=== PATIENT | female | born 1960 | race Caucasian/White ===

== ENCOUNTER 2017-07-22 14:00 | Emergency (ER) | payer MEDICARE, OTHER, SELFPAY ==
[2017-07-22 14:01] VITALS: BP 155/94; PULSE 124; RESP 32; TEMP 36.7; O2SAT 97; BMI 22.6
--- NOTE | 2017-07-22 15:23 | CT_ITS ---
STUDY: CT BRAIN WITHOUT CONTRAST REASON FOR EXAM: Female, 57 years old. Acute seizures. RADIATION DOSAGE (If Supplied By Facility): CTDIvol = ( 44.99 ) mGy, DLP = ( 779.24 ) mGycm TECHNIQUE: Transaxial CT imaging of the brain was performed without administration of intravenous contrast material. Individualized dose optimization techniques were used for this CT. COMPARISON: None. FINDINGS: Normal soft tissue structures. Normal calvarium. Normal size ventricles and extra-axial spaces for the patient's age. Normal white matter tracts of the cerebral hemispheres. Normal basal ganglia and thalami. Normal brainstem. Normal cerebellum. There is no intracranial hemorrhage. There are no findings of an acute ischemic infarction. Atherosclerotic calcification of the cavernous portions of the internal carotid arteries bilaterally. Normal visualized paranasal sinuses. CT/Brain/Head without Contrast IMPRESSION: Normal unenhanced CT scan of the brain. Electronically Signed: Phil Torres MD at 15:56 EDT Tel [phone], Service support ,
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
[2017-07-22 15:31] VITALS: BP 123/90; PULSE 111; RESP 21; O2SAT 98
[2017-07-22 15:33] LABS: Absolute Lymphocyte Count 4.13 X10^3/ul (0.83-4.51); Absolute Neutrophil Count 7.2 X10^3/uL (2.0-7.7); Basophil# 0.01 X10^3/uL; Basophil% 0.1 % (0-1); Eosinophil# 0.08 X10^3/uL; Eosinophils% 0.6 % (0-5); Hematocrit 47.1 % (37-47); Hemoglobin 15.3 g/dl (12.0-15.0); Lymphocyte # 4.13 X10^3/ul (4.0); Lymphocyte % 33.5 % (19-41); Mean Corp Hgb Conc 32.5 g/gl (32-36); Mean Corpuscular Hgb 32.3 pg (27.0-32.0); Mean Corpuscular Volume 99.6 fL (81-99); Mean Platelet Vol. 9.7 fl (6.2-12.0); Monocyte# 0.78 X10^3/uL; Monocyte% 6.3 % (0-10); Neutrophil # 7.23 X10^3/uL (2.7-7.7); Neutrophil % 58.9 % (47-70); Platelet Count 429 K/mm3 (150-450); RBC Distribution Width CV 13.1 % (11.6-14.6); RBC Distribution Width SD 47.6 fl (35.1-43.9); Red Blood Count 4.73 M/mm3 (4.2-5.4); White Blood Count 12.3 K/mm3 (4.4-11.0)
[2017-07-22 15:35] LABS: POSITIVE COUNT NO; POSITIVE DIFFERENTIAL NO; POSITIVE MORPHOLOGY NO
[2017-07-22 15:58] LABS: Anion Gap 27 (5-15); BUN 10 mg/dL (7-18); BUN/Creat Ratio 7.8 RATIO (10-20); Calcium,Total 9.2 mg/dL (8.5-10.1); Chloride 101 mmol/L (98-107); Creatinine, Serum 1.28 mg/dL (0.55-1.02); EST Glomerular Filtration Rate 46 mL/min (>60); Est Glom Filt Rate - Afr Amer 55 mL/min (>60); Estimated Creatinine Clearance 42.38 ml/min; Glucose 193 mg/dL (74-106); Potassium 3.4 mmol/L (3.5-5.1); Sodium Level 137 mmol/L (136-145)
[2017-07-22 16:29] VITALS: BP 145/87; PULSE 98; RESP 18
--- NOTE | 2017-07-22 16:34 | ED.DEP ---
ED Disposition - Plan for ED Patient: Disposition: Home or Assisted Living Chief Complaint: Seizure Instructions: ED Seizure Recurrent Referrals: Marcus Rasmussen MD [STAFF PHYSICIAN] - As soon as possible Additional Instructions: Call follow-up with a neurologist for further evaluation testing. Return to ER if you have another seizure.
[2017-07-22 16:44] VITALS: BP 132/95; PULSE 95; RESP 18
== END 2017-07-22 16:57 | disposition home or self-care (01) ==
PROVIDERS: Emergency Provider Emergency Medicine
DX: R56.9 Unspecified convulsions (principal); J44.9 Chronic obstructive pulmonary disease, unspecified; Z72.0 Tobacco use
CPT/HCPCS: 70450; 80048; 85025; 99284; J7030; A4216

== ENCOUNTER 2021-09-19 01:43 | Emergency (ER) | payer OTHER, SELFPAY ==
[2021-09-19 01:47] VITALS: BP 154/93; PULSE 98; RESP 21; TEMP 36.6; O2SAT 100; BMI 22.0
--- NOTE | 2021-09-19 01:55 | CT_ITS ---
EXAM: CT brain without contrast HISTORY: seizure TECHNIQUE: No intravenous contrast. A radiation dose optimization technique was used for this scan. COMPARISON: July 22, 2017. LIMITATIONS: None. BRAIN: Normal beverly/white matter differentiation. VENTRICLES: No hydrocephalus. EXTRA-AXIAL SPACES: No acute hemorrhage. CALVARIUM/SKULL BASE: No acute fracture. FACE/SINUSES: Calcification of the posterior ocular globes bilaterally, stable since the prior exam. SOFT TISSUES: Normal. OTHER: None. CONCLUSION: No acute intracranial abnormality. Electronically Signed: Duy Grissom MD at 3:21 EDT , CT/Brain/Head without Contrast IMPRESSION: undefined
--- NOTE | 2021-09-19 01:57 | EDS_ITS ---
HPI History of Present Illness Chief Complaint: Seizure Informant: patient Narrative Narrative: Patient evidently had a seizure at home. She rolled off the couch and was shaking. I do not know how long this lasted. Patient tells me she has had seizures for some years. They will sometimes be a long time apart and sometimes she will get one every 3 months or so. She has not been on medications for these. She states they are generally pretty rare. She cannot associate any specific event that triggers these. She has not been sick recently. Denies any change in medicines. No edre-kug-[id number] medicines. She does take Tylenol with codeine for pains. She takes Flexeril on occasion. But she has not had any Flexeril for a while. No street drugs. She is not complaining of any pains or injury at this time. [facility] Medical History Seizure Home Medications cyclobenzaprine [Flexeril] 10 mg PO TID PRN 09/19/21 [History Last Taken Unknown] Allergy/AdvReac Type Severity Reaction Status Date / Time No Known Allergies Allergy Verified 07/22/17 14:04 Social History Smoking Status: Current every day smoker tobacco type: cigarettes ROS ROS ED Constitutional Constitutional ED: Denies chills or fever(s) Eyes Eyes: Denies blurry vision ENT ENT ED: Denies rhinorrhea or sore throat Cardiovascular Cardiovascular: Denies chest pain or palpitations Respiratory/Chest Respiratory/Chest: Denies cough or dyspnea Gastrointestinal Gastrointestinal: Denies nausea or vomiting Genitourinary Genitourinary ED: Denies dysuria Musculoskeletal Musculoskeletal: Denies arthralgias, back pain, myalgias or neck pain Integumentary Denies rash Neurologic Neurologic: Denies headache(s), paresthesias or weakness Endocrine Endocrinology: Denies polydipsia or polyuria Allergic/Immunologic Allergic/Immunologic ED: Denies urticaria EXAM Physical Exam Const Vital Signs: 09/19/21 01:47 Temperature 97.9 F Temperature Source Temporal Pulse Rate 98 Respiratory Rate 21 H Blood Pressure 154/93 H Blood Pressure Mean 113 Pulse Ox 100 Oxygen Delivery Method Room Air Positive well nourished and well developed General Appearance ED: well developed and NAD HEENT Reports moist mucous membranes HEENT Narrative: No notable tongue laceration. Eyes General Eye ED: Negative for pale conjunctiva or scleral icterus Neck no JVD Chest Wall inspection of chest normal Resp normal respiratory effort and clear to auscultation bilaterally Cardio regular rate and regular rhythm GI normal to inspection, nondistended, normoactive bowel sounds and non-tender Palpation: soft Back/Spine no CVA tenderness Extremity normal to inspection General Extremety ED: Negative for edema or tenderness General Extremity: Negative for edema Neuro Neuro Narrative: Patient is oriented to person place but she has a little trouble with the year. She is oriented to [employer] also. She knows her medications and her past history. Sensorium / Orientation: alert Psych mental status grossly normal Skin no rashes or lesions noted Skin Narrative: No sign of trauma MDM MDM MDM Narrative Medical decision making narrative: And CBC is normal. Electrolytes are normal other than mild elevation in creatinine at 1.24. She was given some IV fluids. Ethanol is negative. Tox screen is positive for cannabis, MDMA, and methamphetamines. Patient denies taking anything. She has not even had Flexeril in a while. She has not had trazodone which can cross-react with MDMA. She denies street drug use. I told her to be very careful about what people give her. It is possible somebody gave her medication. However the screens are usually relatively accurate that there is a compound in her system. Both the MDMA and amphetamines could contribute to seizures. Patient states she has seizures anywhere from 2 to 3 months apart up to a year or so apart. [facility]. I recommend she follow-up. She should have a discussed kim with her [facility]rologist about considering being on medicines versus no medicines due to her infrequent seizures. Lab Data Attestation: I reviewed the patient's lab results. Labs: Laboratory Results - last 24 hr 09/19/21 09/19/21 09/19/21 02:05 02:05 02:05 WBC 10.8 RBC 4.65 Hgb 14.0 Hct 41.9 MCV 90.1 MCH 30.1 MCHC 33.4 RDW Std Deviation 41.5 RDW Coeff of Jose 12.6 Plt Count 356 MPV 8.5 Immature Gran % (Auto) 0.300 Neut % (Auto) 77.7 H Lymph % (Auto) 15.4 L Reeves % (Auto) 6.1 Eos % (Auto) 0.3 Baso % (Auto) 0.2 Absolute Neuts (auto) 8.4 H Absolute Lymphs (auto) 1.67 Nucleated RBC % 0 Sodium 136 Potassium 3.5 Chloride 104 Carbon Dioxide 21.0 Anion Gap 11 BUN 13 Creatinine 1.24 H Estim Creat Clear Calc 41.66 Est GFR (MDRD) Af Amer 57 L Est GFR (MDRD) Non-Af 47 L BUN/Creatinine Ratio 10.5 Glucose 132 H Calcium 9.1 Urine Opiates Screen Urine Methadone Screen Ur Barbiturates Screen Ur Phencyclidine Scrn Ur Amphetamines Screen MDMA (Ecstasy) Screen U Benzodiazepines Scrn Urine Cocaine Screen U Cannabinoids Screen Ur Drug Screen Comment Ethyl Alcohol < 3.0 09/19/21 02:53 WBC RBC Hgb Hct MCV MCH MCHC RDW Std Deviation RDW Coeff of Jose Plt Count MPV Immature Gran % (Auto) Neut % (Auto) Lymph % (Auto) Reeves % (Auto) Eos % (Auto) Baso % (Auto) Absolute Neuts (auto) Absolute Lymphs (auto) Nucleated RBC % Sodium Potassium Chloride Carbon Dioxide Anion Gap BUN Creatinine Estim Creat Clear Calc Est GFR (MDRD) Af Amer Est GFR (MDRD) Non-Af BUN/Creatinine Ratio Glucose Calcium Urine Opiates Screen NEGATIVE Urine Methadone Screen NEGATIVE Ur Barbiturates Screen NEGATIVE Ur Phencyclidine Scrn NEGATIVE Ur Amphetamines Screen POSITIVE H MDMA (Ecstasy) Screen POSITIVE H U Benzodiazepines Scrn NEGATIVE Urine Cocaine Screen NEGATIVE U Cannabinoids Screen POSITIVE H Ur Drug Screen Comment Ethyl Alcohol Radiography Diagnostic Testing: Clinical Impression(s) from Imaging Studies Brain CT 09/19/21 01:55 IMPRESSION: undefined Discharge Plan Triage Chief Complaint: Seizure ED Provider: Honorio Reeder Dx/Rx/DC Orders Clinical Impression: Seizure Instructions: ED Seizure, Recurrent (Adult) Prescriptions: No Action cyclobenzaprine [Flexeril] 10 mg Tablet 10 mg PO TID PRN (Reason: Muscle Spasm) RF: 0 Primary Care Provider: Care Physician,No Primary Referrals: Leilani Lin MD [STAFF PHYSICIAN] - As soon as possible Care Physician,No Primary [Primary Care Provider] - Activity Restrictions/Additional Instructions: Follow-up with Dr. Lin or called the [facility] for follow-up. Disposition Disposition: Home, Self Care
[2021-09-19 02:10] LABS: Absolute Lymphocyte Count 1.67 X10^3/uL (0.83-4.51); Absolute Neutrophil Count 8.4 X10^3/uL (2.0-7.7); Basophil# 0.02 X10^3/uL; Basophil% 0.2 % (0-1); Eosinophil# 0.03 X10^3/uL; Eosinophils% 0.3 % (0-5); Hematocrit 41.9 % (37-47); Lymphocyte # 1.67 X10^3/ul (0.83-4.51); Lymphocyte % 15.4 % (19-41); Mean Corp Hgb Conc 33.4 g/dL (32-36); Mean Corpuscular Hgb 30.1 pg (27.0-32.0); Mean Corpuscular Volume 90.1 fL (81-99); Mean Platelet Vol. 8.5 fl (6.2-12.0); Monocyte# 0.66 X10^3/uL; Monocyte% 6.1 % (0-10); NRBC Flagged by Analyzer 0 % (0-5); Neutrophil # 8.41 X10^3/uL (2.7-7.7); Neutrophil % 77.7 % (47-70); Platelet Count 356 K/mm3 (150-450); RBC Distribution Width CV 12.6 % (11.6-14.6); RBC Distribution Width SD 41.5 fl (35.1-43.9); Red Blood Count 4.65 M/mm3 (4.2-5.4); White Blood Count 10.8 K/mm3 (4.4-11.0)
[2021-09-19 02:30] LABS: Anion Gap 11 (5-15); BUN 13 mg/dL (7-18); BUN/Creat Ratio 10.5 RATIO (10-20); Calcium,Total 9.1 mg/dL (8.5-10.1); Chloride 104 mmol/L (98-107); Creatinine, Serum 1.24 mg/dL (0.55-1.02); EST Glomerular Filtration Rate 47 mL/min (>60); Est Glom Filt Rate - Afr Amer 57 mL/min (>60); Estimated Creatinine Clearance 41.66 ml/min; Glucose 132 mg/dL (74-106); Potassium 3.5 mmol/L (3.5-5.1); Sodium Level 136 mmol/L (136-145)
[2021-09-19 02:34] LABS: Alcohol, Blood (Medical)-Serum < 3.0 mg/dL
[2021-09-19 03:23] LABS: Amphetamine Urine VISTA POSITIVE (<1000 ng/mL); Barbiturate Urine VISTA NEGATIVE (< 200 ng/mL); Benzodiazepine Urine VISTA NEGATIVE (< 200 ng/mL); Cocaine Urine VISTA NEGATIVE (< 300 ng/mL); Ecstacy Urine VISTA POSITIVE (< 500 ng/mL); Methadone Urine VISTA NEGATIVE (< 300 ng/mL); PCP Urine VISTA NEGATIVE (< 25 ng/mL); THC Urine VISTA POSITIVE (< 50 ng/mL); Vista UDS pH Range 4
[2021-09-19] MEDS: Acetaminophen 325 MG Tablet 650 MG PO (03:27)
[2021-09-19 04:13] VITALS: BP 156/88; PULSE 69; RESP 18; O2SAT 99
== END 2021-09-19 05:16 | disposition home or self-care (01) ==
PROVIDERS: Emergency Provider Emergency Medicine; Visit Provider Emergency Medicine
DX: R56.9 Unspecified convulsions (principal); F17.210 Nicotine dependence, cigarettes, uncomplicated
CPT/HCPCS: 70450; 80048; 80307; 82077; 85025; 99285; J7040; A4216

== ENCOUNTER 2021-09-19 13:23 | Emergency (ER) | payer OTHER, SELFPAY ==
[2021-09-19 13:24] VITALS: BP 152/94; PULSE 89; RESP 16; TEMP 35.5; O2SAT 100; BMI 21.5
--- NOTE | 2021-09-19 14:21 | EX.ED.DYSGE1 ---
HPI History of Present Illness Chief Complaint: Seizure Narrative Narrative: 61-year-old female presenting with chief complaint of I think I had a seizure. She states that she was on the couch watching television when this occurred. She cannot remember the last thing that happened before this. She states she did not follow-up the couch and did not have any trauma. She states that she was at home with her friend who states that she was shaking. Patient unable to give a description of what exactly happened. She states she woke up to EMS standing over her. She does state that when she opened her eyes she recalls seeing EMS. She feels completely normal now. She states she had a headache which is resolved. She denies pain elsewhere. Denies blurry vision, nausea, vomiting. She denies neck pain. Patient states that this is her third seizure in her entire life. She was recently seen about 12 hours ago for similar symptoms. She was found to have methamphetamine, MDMA, cannabinoids in her system. She states earlier she does not admit to this but she is currently admitting that she did do some methamphetamine she believes. She states she did not do any more after she went home. [facility] Medical History Seizure Home Medications NK 09/19/21 [History Last Taken Unknown] Allergy/AdvReac Type Severity Reaction Status Date / Time No Known Allergies Allergy Verified 09/19/21 13:26 Social History Smoking Status: Current every day smoker tobacco type: cigarettes ROS ROS ED Constitutional Constitutional ED: Denies chills or fever(s) Eyes Eyes: Denies blurry vision ENT ENT ED: Denies rhinorrhea or sore throat Cardiovascular Cardiovascular: Denies chest pain or palpitations Respiratory/Chest Respiratory/Chest: Denies cough or dyspnea Gastrointestinal Gastrointestinal: Denies abdominal pain, nausea or vomiting Genitourinary Genitourinary ED: Denies dysuria or hematuria Musculoskeletal Musculoskeletal: Denies arthralgias, myalgias or neck pain Integumentary Denies rash Neurologic Neurologic: Reports headache(s); Denies paresthesias or weakness Psychiatric Psychiatric: Denies anxiety or depression EXAM Physical Exam Const Vital Signs: 09/19/21 13:24 Temperature 96 F L Temperature Source Temporal Pulse Rate 89 Respiratory Rate 16 Blood Pressure 152/94 H Blood Pressure Mean 113 Pulse Ox 100 Oxygen Delivery Method Room Air Positive well nourished General Appearance ED: NAD; Negative for pallor HEENT Reports moist mucous membranes normocephalic and atraumatic Eyes PERRL and EOMs intact bilaterally Neck no lymphadenopathy and supple General: Negative for tenderness Chest Wall inspection of chest normal Resp normal respiratory effort and clear to auscultation bilaterally Cardio regular rate and regular rhythm GI normal to inspection, nondistended, normoactive bowel sounds Neuro oriented x3, CN's II-XII intact bilaterally and no sensory deficits noted Sensorium / Orientation: alert Motor Exam: strength 5/5 throughout Psych mental status grossly normal Skin no rashes or lesions noted General Skin Exam: Negative for jaundice or pallor MDM MDM MDM Narrative Medical decision making narrative: Patient states that currently she is at her baseline. She states that she believes she had another seizure. She does not wish to have any further evaluation or work-up because she just had one earlier today. She does admit currently that she did do methamphetamine earlier today before coming the first visit but states that she did not have any afterwards. I did have a discussion with her that doing those drugs that were in her system could lower her seizure threshold and that this could be a source. I did offer blood work and imaging but she declines and states that I feel fine and just wants to leave. I believe she has the capacity to make this decision. Impression: 1. Breakthrough seizure 2. MDMA abuse 3. Methamphetamine abuse 4. Cannabinoid abuse Discharge Plan Triage Chief Complaint: Seizure ED Provider: Nilo Patel Dx/Rx/DC Orders Instructions: ED Seizure, Recurrent (Adult) Prescriptions: No Action NK RF: 0 [facility] Referrals: Care Physician,No Primary [NON-STAFF] - Disposition Disposition: Home, Self Care
[2021-09-19 14:36] VITALS: BP 146/98; PULSE 81; RESP 18
== END 2021-09-19 14:36 | disposition home or self-care (01) ==
LOC: ED 14:20
PROVIDERS: Emergency Provider Student in an Organized Health Care Education/Training Program; Visit Provider Student in an Organized Health Care Education/Training Program
DX: R56.9 Unspecified convulsions (principal); F15.10 Other stimulant abuse, uncomplicated; F17.210 Nicotine dependence, cigarettes, uncomplicated; F12.10 Cannabis abuse, uncomplicated
CPT/HCPCS: 99284

== ENCOUNTER 2024-03-28 12:24 | Emergency (ER) | payer OTHER, SELFPAY ==
[2024-03-28 12:24] VITALS: BP 142/107; PULSE 100; RESP 19; TEMP 36.4; O2SAT 97; BMI 19.2
[2024-03-28 12:29] VITALS: TEMP 36.4; O2SAT 95
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
--- NOTE | 2024-03-28 12:45 | EKG12_ITS ---
Test Reason : GENERAL Blood Pressure : */* mmHG Vent. Rate : 97 BPM Atrial Rate : 97 BPM P-R Int : 142 ms QRS Dur : 90 ms QT Int : 402 ms P-R-T Axes : 82 48 56 degrees QTcB Int : 510 ms Sinus rhythm with occasional Premature ventricular complexes Septal infarct , age undetermined Prolonged QT Abnormal ECG Confirmed by JOSE R VÁSQUEZ, TERESA ([id number]), publications editor FLORES SMITH ([id number]) on 03/30/2024 7:04:52 AM Referred By: Confirmed By: TERESA ODELL MD
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
[2024-03-28 13:15] LABS: Absolute Neutrophil Count 8.8 X10^3/uL (2.0-7.7); Basophil# 0.02 X10^3/uL; Basophil% 0.2 % (0-1); Eosinophil# 0.08 X10^3/uL; Eosinophils% 0.7 % (0-5); Hematocrit 42.4 % (37-47); Hemoglobin 13.6 g/dL (12.0-15.0); Lymphocyte % 20.2 % (19-41); Mean Corp Hgb Conc 32.1 g/dL (32-36); Mean Corpuscular Hgb 29.9 pg (27.0-32.0); Mean Corpuscular Volume 93.2 fL (81-99); Mean Platelet Vol. 9.3 fl (6.2-12.0); Monocyte# 0.59 X10^3/uL; NRBC Flagged by Analyzer 0 % (0-5); Neutrophil # 8.75 X10^3/uL (2.7-7.7); Neutrophil % 73.4 % (47-70); Platelet Count 412 K/mm3 (150-450); Red Blood Count 4.55 M/mm3 (4.2-5.4); White Blood Count 11.9 K/mm3 (4.4-11.0)
[2024-03-28] MEDS: 0.9% Normal Saline (1000mL) 1,000 ML 999 ML IV (13:18)
[2024-03-28 13:20] LABS: Prothrombin Time (Protime)PT. 13.1 SECONDS (11.7-14.9)
[2024-03-28 13:21] LABS: Partial Thromboplast Time 26.7 Seconds (24.1-36.2)
[2024-03-28 13:29] LABS: AST(SGOT) 14 U/L (15-37); Alanine Aminotransfer ALT/SGPT 14 U/L (13-56); Albumin, Serum 3.5 g/dL (3.2-5.0); Alkaline Phosphatase 98 U/L (45-117); Anion Gap 11 (5-15); BUN 15 mg/dL (7-18); BUN/Creat Ratio 14.4 RATIO (10-20); Bilirubin, Direct 0.08 mg/dL (0.00-0.30); Chloride 105 mmol/L (98-107); Creatinine, Serum 1.04 mg/dL (0.55-1.02); EST Glomerular Filtration Rate 57 mL/min (>60); Est Glom Filt Rate - Afr Amer 69 mL/min (>60); Estimated Creatinine Clearance 44.98 ml/min; Globulin 4.5 g/dL (2.2-4.2); Glucose 110 mg/dL (74-106); Potassium 3.5 mmol/L (3.5-5.1); Sodium Level 137 mmol/L (136-145)
[2024-03-28 14:18] LABS: Color, Urine Straw (Yellow); Glucose, Dipstick Normal (Normal); Ketone-Dipstick Negative (Negative); Leukocyte Esterase-Dipstick Negative /ul (Negative); Nitrite-Dipstick Negative (Negative); Occult Blood-Urine 50 /ul (Negative); Protein-Dipstick 30 mg/dl (Negative); Specific Gravity, Urine 1.015 (1.002-1.030); Urine Bilirubin Dipstick Negative (Negative); Urine Clarity Clear (Clear); Urine Urobilinogen Normal (Normal)
--- NOTE | 2024-03-28 14:23 | EDS_ITS ---
HPI History of Present Illness Chief Complaint: Fall Narrative Narrative: Patient is a 63-year-old female with past medical history of seizures who presents to the emergency department with a chief complaint of seizure. Patient states that she does not recall what happened earlier today. According to EMS she was found facedown in a parking lot and was found by bystander. Per EMS she was confused as to what happened during the event. Patient states that she was on Depakote but she has been off of this for several years that she has not had a seizure. Patient states that she had been feeling fine yesterday and earlier today prior to the seizure. Patient denies any other pain right now. [facility] Medical History Epilepsy Seizure Home Medications ?Medication ?Instructions ?Recorded ?Last Taken ?Type NK 09/19/21 Unknown History Allergy/AdvReac Type Severity Reaction Status Date / Time No Known Allergies Allergy Verified 03/28/24 12:28 Social History Smoking Status: Current every day smoker tobacco type: cigarettes ROS ROS ED ROS Narrative Constitutional: Denies any fevers, chills, headaches, lightness, dizziness Eyes: Denies change in vision double vision blurry vision Cardiovascular: Denies chest pain or palpitations Respiratory: Denies coughing wheezing shortness of breath Abdomen: Denies abdominal pain nausea vomit diarrhea : Denies any urinary symptoms Neurological: Denies any numbness, weakness, tingling complaint of seizures noted above Musculoskeletal: Denies back pain Skin: Denies any rashes or lesions EXAM Physical Exam Narrative Exam Narrative: General: Patient lying in bed rest comfortably did not appear to be in acute distress Head: Atraumatic, normocephalic Eyes: PERRL body, EOMI biotic no conjunctival injection noted Neck: Soft, supple, trachea midline Cardiovascular: Regular rate and rhythm no murmurs gallops rubs noted Respiratory: Clear to auscultation bilaterally no rales rhonchi or wheezes noted Abdomen: Soft, nondistended, nontender to palpation, bowel sounds present x 4 Musculoskeletal: All bony prominences palpated and joints taken through full range of motion no pain elicited Extremities: +5/5 strength noted in the bilateral upper and lower extremities, radial pulses +2/4 in the bilateral per extremities, no pedal edema neuroexam Neurological: Patient following commands knew that she was at [facility] year is 2023. NIH of 0 GCS 15 Skin: Warm, dry, intact Const Vital Signs: 03/28/24 12:24 03/28/24 12:29 03/28/24 14:24 Temperature 97.6 F L 97.6 F L Temperature Source Oral Pulse Rate 100 Respiratory Rate 19 H Respiratory Effort Normal Non-Labored Respiratory Pattern Tachypnea Blood Pressure 142/107 H 165/65 H Blood Pressure Mean 118 98 Pulse Ox 97 95 Oxygen Delivery Method Room Air Room Air MDM MDM MDM Narrative Medical decision making narrative: Patient is a 63-year-old female who presented to the emergency department after a seizure earlier. Patient will have a workup performed here on the differential diagnose includes Melamin to intracranial hemorrhage, electrolyte abnormality, substance abuse, UTI, ACS. Once workup is obtained reviewed she will be reevaluated. Patient's CBC reviewed and showed a white blood count of 11,000, hemoglobin was 13.6, platelet count was noted be 412. Patient's INR normal at 1, PT of 13.1. Patient sodium normal 137, potassium is normal 3.5, creatinine was 1.04. Patient's AST and ALT are 14 and 14 respectively. Patient's urinalysis showed 50 occult blood 5-10 white cells and 2+ bacteria she did not have any urinary symptoms therefore this was sent for culture. Patient drug screen was positive for amphetamines and ecstasy. Patient's CT head and brain without contrast showed no acute findings. Patient CT cervical spine reviewed and showed multilevel degenerative and postsurgical changes no acute findings noted. Patient's EKG was reviewed and independently interpreted by myself which showed sinus rhythm with a rate of 97 bpm with occasional premature ventricular complexes noted. It is unclear as to the exact etiology of her fall and unresponsive episode on the ground today as this was unwitnessed. Patient did elope prior to all her imaging returning and discussion with her about her results. Lab Data Labs: Laboratory Results - last 24 hr 03/28/24 03/28/24 13:01 14:02 WBC 11.9 H RBC 4.55 Hgb 13.6 Hct 42.4 MCV 93.2 MCH 29.9 MCHC 32.1 RDW Std Deviation 48.0 H RDW Coeff of Jose 14.0 Plt Count 412 MPV 9.3 Immature Gran % (Auto) 0.500 Neut % (Auto) 73.4 H Lymph % (Auto) 20.2 Mitchell % (Auto) 5.0 Eos % (Auto) 0.7 Baso % (Auto) 0.2 Absolute Neuts (auto) 8.8 H Absolute Lymphs (auto) 2.40 Nucleated RBC % 0 PT 13.1 INR 1.0 APTT 26.7 Sodium 137 Potassium 3.5 Chloride 105 Carbon Dioxide 22.0 Anion Gap 11 BUN 15 Creatinine 1.04 H Estim Creat Clear Calc 44.98 Est GFR (MDRD) Af Amer 69 Est GFR (MDRD) Non-Af 57 L BUN/Creatinine Ratio 14.4 Glucose 110 H Calcium 10.0 Total Bilirubin 0.30 Direct Bilirubin 0.08 AST 14 L ALT 14 Alkaline Phosphatase 98 Total Protein 8.0 Albumin 3.5 Globulin 4.5 H Urine Color Straw Urine Clarity Clear Urine pH 6.0 Ur Specific [place] 1.015 Urine Protein 30 H Urine Glucose (UA) Normal Urine Ketones Negative Urine Occult Blood 50 H Urine Nitrite Negative Urine Bilirubin Negative Urine Urobilinogen Normal Ur Leukocyte Esterase Negative Urine RBC 0-5 SEEN Urine WBC 5-10 SEEN Ur Squamous Epith Cells 0-5 SEEN Amorphous Sediment 2+ Urine Bacteria 2+ Urine Mucus 1+ Urine Opiates Screen NEGATIVE Urine Methadone Screen NEGATIVE Ur Barbiturates Screen NEGATIVE Ur Phencyclidine Scrn NEGATIVE Ur Amphetamines Screen POSITIVE H MDMA (Ecstasy) Screen POSITIVE H U Benzodiazepines Scrn NEGATIVE Urine Cocaine Screen NEGATIVE U Cannabinoids Screen NEGATIVE Ur Drug Screen Comment Radiography Diagnostic Testing: Clinical Impression(s) from Imaging Studies Brain CT 03/28/24 12:45 IMPRESSION: Normal unenhanced CT scan of the brain. Electronically Signed: Anderson Villasenor MD at 14:44 EST , Cervical Spine CT 03/28/24 12:45 IMPRESSION: Multilevel degenerative and postsurgical changes, no acute findings Electronically Signed: Anderson Villasenor MD at 14:50 EST , Discharge Plan Triage Chief Complaint: Fall ED Provider: Aureliano Aragon Dx/Rx/DC Orders Clinical Impression: Fall Prescriptions: No Action NK [facility] [facility] [Primary Care Provider] - Print Language: Yoruba Disposition Disposition: Elopement Discharge Date/Time: 03/28/24 15:18
[2024-03-28 14:24] VITALS: BP 165/65
[2024-03-28 14:24] LABS: Amphetamine Urine VISTA POSITIVE (<1000 ng/mL); Barbiturate Urine VISTA NEGATIVE (< 200 ng/mL); Benzodiazepine Urine VISTA NEGATIVE (< 200 ng/mL); Cocaine Urine VISTA NEGATIVE (< 300 ng/mL); Ecstacy Urine VISTA POSITIVE (< 500 ng/mL); Methadone Urine VISTA NEGATIVE (< 300 ng/mL); PCP Urine VISTA NEGATIVE (< 25 ng/mL); THC Urine VISTA NEGATIVE (< 50 ng/mL); Vista UDS pH Range 5
[2024-03-28 14:33] LABS: Amorphous Sediment 2+; Bacteria 2+ /hpf (None Seen); Mucous, Urine 1+ /hpf (<or=2+); Red Blood Cells-Urine 0-5 SEEN /hpf (0-5); Squamous Epithelial Cells - UA 0-5 SEEN /hpf (5-10); White Blood Cells 5-10 SEEN /hpf (0-5)
--- NOTE | 2024-03-28 15:17 | ED.RN ---
THIS NURSE WAS INFORMED BY SHOEMAKER APPRENTICE THAT PT WALKED OUT OF ROOM AND LEFT THE BUILDING. IV LAYING ON BED, GOWN REMOVED.
== END 2024-03-28 15:18 | disposition left against medical advice (07) ==
LOC: ED 13:02
PROVIDERS: Emergency Provider Emergency Medicine; Visit Provider Emergency Medicine
DX: R41.0 Disorientation, unspecified (principal); I49.3 Ventricular premature depolarization; F17.210 Nicotine dependence, cigarettes, uncomplicated; W19.XXXA Unspecified fall, initial encounter
CPT/HCPCS: 70450; 72125; 80048; 80076; 80307; 81001; 85025; 85610; 85730; 87086; 93005; 96360; 99285

== ENCOUNTER 2024-10-29 06:50 | Inpatient (IN) | payer OTHER, SELFPAY ==
[2024-10-29] VITALS (20 sets, daily range): BP systolic 141–215; BP diastolic 81–125; PULSE 75–91; RESP 10–19; TEMP 37–37.4; O2SAT 97–100; BMI 16.5; BMI 19.5
--- NOTE | 2024-10-29 07:09 | EKG12_ITS ---
Test Reason : CP Blood Pressure : */* mmHG Vent. Rate : 86 BPM Atrial Rate : 86 BPM P-R Int : 138 ms QRS Dur : 82 ms QT Int : 378 ms P-R-T Axes : 84 50 49 degrees QTcB Int : 452 ms Normal sinus rhythm Right atrial enlargement Borderline ECG Confirmed by JOSE R VÁSQUEZ, TERESA ([id number]), pictures editor SISSY BOUCHER ([id number]) on 11/02/2024 9:38:36 AM Referred By: Confirmed By: TERESA ODELL MD
--- NOTE | 2024-10-29 07:09 | CT_ITS ---
PROCEDURE: ABDOMEN/PELVIS W IV CONT ONLY 10/29/2024 REASON FOR EXAM: ABDOMINAL PAIN TECHNIQUE: ABDOMEN/PELVIS W IV CONT ONLY Coronal and Sagittal reconstruction series were provided. CONTRAST: Isovue 370 VOLUME: 100 mL One or more dose reduction techniques were used (e.g., Automated exposure control, adjustment of the mA and/or kV according to patient size, use of iterative reconstruction technique. RADIATION DOSE SUMMARY: DLP: 300 mGycm COMPARISON: None. FINDINGS: Lung bases: Visualization is limited by motion artifact. Bibasilar atelectasis. Liver: The liver is normal in size without suspicious hepatic mass. The major portal veins are patent. No biliary ductal dilation. Gallbladder: No radiopaque stones within the gallbladder. Spleen: Normal in size. Pancreas: Mildly atrophic and otherwise unremarkable. Adrenals: No adrenal mass. Kidneys: Bilateral renal cysts and additional hypodensities. No hydronephrosis or nephrolithiasis. Bladder: Mildly distended and unremarkable. Reproductive Organs: Surgically absent. Bowel: The bowel loops are nondilated. No ascites or pneumoperitoneum. No inflammatory mass in the expected region of the appendix. Lymph nodes: No suspicious lymph node enlargement. Vasculature: Moderate mixed plaque of the aortoiliac vessels. Bones: Thoracolumbar spondylosis CT/Abdomen/Pelvis W IV Cont ONLY IMPRESSION: No acute abdominopelvic finding. Chronic findings as described. Reading Location: [id number]
--- NOTE | 2024-10-29 07:14 | EX.ED.DYSGE1 ---
HPI History of Present Illness Chief Complaint: Nausea/Vomiting Informant: patient Narrative Narrative: Patient is a 64-year-old female with history of epilepsy presenting with epigastric abdominal pain, vomiting and diarrhea. She has been going on for 3 weeks. History is extremely limited as patient will only tell me these facts. When asked if the pain radiates, how many times a day she is having vomiting and diarrhea and if it is every day she has a hard time answering his questions and will just say what you mean and then tell me again that she has abdominal pain. At the end of my encounter she does tell me that she thinks she has a GI bug. She arrived without shoes and states that she was dropped off by someone but cannot tell us who. She tells me she did not have any trauma to her abdomen. It is unclear if she is ever had this consolation of symptoms before however I do not have a prior ER visit for this. She tells me she does have medications prescribed but when asked what they are or what they treat she does not recall. When asked if she drinks alcohol she tells me a bit. She cannot specify further for quantity, what type of alcohol or how frequent. [facility] Medical History Epilepsy Seizure Home Medications ?Medication ?Instructions ?Recorded ?Last Taken ?Type NK 09/19/21 Unknown History Allergy/AdvReac Type Severity Reaction Status Date / Time No Known Allergies Allergy Verified 10/29/24 06:50 Social History Smoking Status: Current every day smoker tobacco type: cigarettes ROS ROS ED Review of Systems ROS Unobtainable: due to mental status Gastrointestinal Gastrointestinal: Reports abdominal pain, diarrhea and vomiting EXAM Physical Exam Const Vital Signs: 10/29/24 06:50 10/29/24 08:55 10/29/24 10:00 Temperature 98.6 F Temperature Source Oral Pulse Rate 91 85 83 Respiratory Rate 18 11 L 12 Blood Pressure 212/112 H 199/100 H 197/112 H Blood Pressure Mean 145 133 140 Pulse Ox 99 99 98 Oxygen Delivery Method Room Air Room Air 10/29/24 10:39 10/29/24 10:45 10/29/24 11:00 Temperature Temperature Source Pulse Rate 75 Respiratory Rate 10 L Blood Pressure 170/87 H 188/110 H Blood Pressure Mean 112 134 Pulse Ox 100 100 97 Oxygen Delivery Method 10/29/24 11:30 10/29/24 12:00 10/29/24 12:15 Temperature Temperature Source Pulse Rate 82 77 Respiratory Rate 13 Blood Pressure 205/125 H 215/105 H 199/110 H Blood Pressure Mean 146 138 137 Pulse Ox 98 99 100 Oxygen Delivery Method 10/29/24 12:30 10/29/24 12:45 10/29/24 13:00 Temperature Temperature Source Pulse Rate Respiratory Rate Blood Pressure 192/121 H 206/114 H 204/118 H Blood Pressure Mean 141 139 140 Pulse Ox 97 99 98 Oxygen Delivery Method 10/29/24 13:15 Temperature Temperature Source Pulse Rate Respiratory Rate Blood Pressure 182/105 H Blood Pressure Mean 125 Pulse Ox 97 Oxygen Delivery Method Positive well nourished and well developed General Appearance ED: well developed and NAD; Negative for pallor HEENT Reports moist mucous membranes HEENT Narrative: Repetitive movements of the tongue most consistent with long-term medication effect Negative for trauma Eyes PERRL and EOMs intact bilaterally Neck supple Neck Narrative: No meningeal signs Chest Wall inspection of chest normal Resp normal respiratory effort and clear to auscultation bilaterally Cardio regular rate, regular rhythm and no murmurs Cardio Narrative: 2+ radial DP pulses GI non-distended GI Narrative: No's abdominal surgical scars appreciated Inspection: Negative for abdominal distention Auscultation: normoactive bowel sounds Palpation: soft and tender epigastric; Negative for guarding Back/Spine no CVA tenderness Extremity normal to inspection General Extremety ED: Negative for edema General Extremity: Negative for edema Neuro Neuro Narrative: Oriented to self and situation. Sensorium / Orientation: alert and orientation impaired Motor Exam: Negative for general weakness Psych Appearance: grossly normal Attitude: withdrawn Activity / Motor Behavior: psychomotor agitation Speech: minimal and delayed Thought Process: impoverished Thought Content: No suicidality and No homicidality Attention / Concentration: attention grossly intact and concentration grossly impaired Memory / Cognition: memory grossly impaired and cognition impaired Insight: limited Skin no rashes or lesions noted and no wounds General Skin Exam: Negative for jaundice or pallor MDM MDM MDM Narrative Medical decision making narrative: Patient evaluated for 3 weeks of reported vomiting, diarrhea and epigastric pain. She is an exceedingly poor historian. I attempted to call her mother who is listed as her emergency contact however no one answered. Did leave a voicemail. From prior chart reviews patient is only been seen for seizures and has reported methamphetamine abuse in the past. Vital signs significant for hypertension but is downtrending while in the emergency room. Will continue to monitor. Do not appreciate possible abdominal mass, lower suspicion for ruptured AAA/aortic dissection. She is equal pulses in all 4 extremities. Patient is given IV morphine, Zofran and fluids. Will obtain workup including cardiac and abdominal labs and CT of the abdomen and pelvis. Patient continues to have pain. She is redosed with morphine and then Dilaudid. Blood pressure is elevated she is initially given IV labetalol with no significant improvement. Blood pressure is not improving with pain control and is been given IV hydralazine. On my review of the CT she does have an enlarged gallbladder is tender in her right upper quadrant. In addition her alkaline phosphatase is higher than it has been in the past. CT itself was read as no acute process. Right upper quadrant ultrasound is obtained given her chronic pain. This shows cholelithiasis with sonographic Garcia sign and a mildly thickened gallbladder wall however there is no dilation of common bile duct, pericholecystic fluid and is read as equivocal. Due to her leukocytosis and continued pain I do think she would benefit from surgical evaluation. Patient started on IV Zosyn in the emergency room. Due to her mental status I do not think she is safe to go home at this time and think she require admission from that standpoint as well. Social work consult was obtained. I suspect this is more metabolic. She does not have meningeal signs. While in the ER towards the end of her evaluation she is starting to complain of neck pain. She points to the spinous process of C7. She states she has had pain there for 10 years and it always hurts. She denies any acute pain. She still has good range of motion of her neck. Consider CT imaging of the brain. She is on any focal neurologic deficits. She is alert and her mentation is slightly improved on the emergency room. No signs of head trauma. Patient evaluated by general surgery who will order HIDA scan and reevaluate tomorrow for potential cholecystectomy. Patient admitted to medicine service. Blood pressure finally does improve with IV hydralazine. She is given IV fluids in the emergency room as well. Lab Data Attestation: I reviewed the patient's lab results. Labs: Laboratory Results - last 24 hr 07/24/25 07/24/25 07/24/25 06:55 07:20 08:00 WBC 13.8 H RBC 5.42 H Hgb 16.6 H Hct 48.0 H MCV 88.6 MCH 30.6 MCHC 34.6 RDW Std Deviation 40.4 RDW Coeff of Jose 12.4 Plt Count 410 MPV 10.2 Immature Gran % (Auto) 0.500 Neut % (Auto) 74.0 H Lymph % (Auto) 20.1 Anderson % (Auto) 4.8 Eos % (Auto) 0.2 Baso % (Auto) 0.4 Absolute Neuts (auto) 10.2 H Absolute Lymphs (auto) 2.78 Nucleated RBC % 0 Sodium 130 L Potassium 3.9 Chloride 90 L Carbon Dioxide 25.3 Anion Gap 15 BUN 47 H Creatinine 1.28 H Estim Creat Clear Calc 31.03 L Est GFR (MDRD) Non-Af 47 L BUN/Creatinine Ratio 36.4 H Glucose 139 H Lactic Acid 1.4 Calcium 10.2 Total Bilirubin 0.36 AST 21 ALT 11 Alkaline Phosphatase 118 H Total Creatine Kinase 38 Troponin T High Sens 13 Troponin T Hi Sens 2 Hr Troponin T Hi Sens 4Hr Total Protein 8.2 Albumin 4.6 Globulin 3.6 Albumin/Globulin Ratio 1.3 Lipase 24 Urine Color Urine Clarity Urine pH Ur Specific [place] Urine Protein Urine Glucose (UA) Urine Ketones Urine Occult Blood Urine Nitrite Urine Bilirubin Urine Urobilinogen Ur Leukocyte Esterase Urine RBC Urine WBC Ur Squamous Epith Cells Urine Bacteria Urine Mucus Urine Opiates Screen U Buprenorphine Qual Ur Oxycodone Screen Urine Methadone Screen Urine Fentanyl Screen Ur Barbiturates Screen Ur Phencyclidine Scrn Ur Amphetamines Screen U Benzodiazepines Scrn Urine Cocaine Screen U Cannabinoids Screen Ethyl Alcohol < 10.1 10/29/24 10/29/24 10/29/24 09:20 09:22 11:25 WBC RBC Hgb Hct MCV MCH MCHC RDW Std Deviation RDW Coeff of Jose Plt Count MPV Immature Gran % (Auto) Neut % (Auto) Lymph % (Auto) Anderson % (Auto) Eos % (Auto) Baso % (Auto) Absolute Neuts (auto) Absolute Lymphs (auto) Nucleated RBC % Sodium Potassium Chloride Carbon Dioxide Anion Gap BUN Creatinine Estim Creat Clear Calc Est GFR (MDRD) Non-Af BUN/Creatinine Ratio Glucose Lactic Acid Calcium Total Bilirubin AST ALT Alkaline Phosphatase Total Creatine Kinase Troponin T High Sens Troponin T Hi Sens 2 Hr 12 Troponin T Hi Sens 4Hr 12 Total Protein Albumin Globulin Albumin/Globulin Ratio Lipase Urine Color Yellow Urine Clarity Clear Urine pH 6.0 Ur Specific [place] 1.010 Urine Protein 30 H Urine Glucose (UA) Normal Urine Ketones Negative Urine Occult Blood 250 H Urine Nitrite Negative Urine Bilirubin Negative Urine Urobilinogen Normal Ur Leukocyte Esterase Negative Urine RBC 5-10 SEEN Urine WBC 0 SEEN Ur Squamous Epith Cells 0-5 SEEN Urine Bacteria 0 SEEN Urine Mucus 0 SEEN Urine Opiates Screen PRESUMPTIVE POSITIVE U Buprenorphine Qual NEGATIVE Ur Oxycodone Screen NEGATIVE Urine Methadone Screen NEGATIVE Urine Fentanyl Screen PRESUMPTIVE POSITIVE Ur Barbiturates Screen NEGATIVE Ur Phencyclidine Scrn NEGATIVE Ur Amphetamines Screen PRESUMPTIVE POSITIVE U Benzodiazepines Scrn NEGATIVE Urine Cocaine Screen NEGATIVE U Cannabinoids Screen PRESUMPTIVE POSITIVE Ethyl Alcohol Radiography Diagnostic Testing: Clinical Impression(s) from Imaging Studies Abdomen/Pelvis CT 10/29/24 07:09 IMPRESSION: No acute abdominopelvic finding. Chronic findings as described. Reading Location: [facility] Gallbladder Ultrasound 10/29/24 09:22 IMPRESSION: Cholelithiasis with equivocal findings of acute cholecystitis. Reading Location: [facility] Rhythm Strip Rhythm Strip: Sinus Rhythm Rate: 86 Ectopy: None EKG Initial EKG: Attestation: I personally reviewed and interpreted this EKG as follows: Interpretation: Sinus Rhythm Comments: Normal sinus rhythm at a rate of 86 bpm Normal axis Normal intervals Right atrial enlargement present Normal ST segments Compared to prior EKG on 03/28/2024 patient has more prominent T waves in V3 through V4 but no other acute changes Management Discussion w/another healthcare provider: Hospitalist, [employer] and asbestos abatement worker/Case management Discharge Plan Dx/Rx/DC Orders Clinical Impression: Abdominal pain, Gallstones, Leukocytosis, CKD (chronic kidney disease), Altered mental status, Polysubstance abuse Disposition Disposition: Acute Care Hospital [facility] Discharge Date/Time: 10/29/24 15:49
[2024-10-29 07:21] LABS: Hematocrit 48.0 % (37-47); Hemoglobin 16.6 g/dL (12.0-15.0); Immature Granulocytes Count 0.070 X10^3/uL (0.0-0.0); Mean Corp Hgb Conc 34.6 g/dL (32-36); Mean Corpuscular Volume 88.6 fL (81-99); Mean Platelet Vol. 10.2 fl (6.2-12.0); NRBC Flagged by Analyzer 0 % (0-5); Platelet Count 410 K/mm3 (150-450); RBC Distribution Width CV 12.4 % (11.6-14.6); RBC Distribution Width SD 40.4 fl (35.1-43.9); Red Blood Count 5.42 M/mm3 (4.2-5.4); White Blood Count 13.8 K/mm3 (4.4-11.0)
[2024-10-29] MEDS: 0.9% Normal Saline (1000mL) 1,000 ML 999 ML IV (07:25)
[2024-10-29 07:42] LABS: Troponin T High Sensitivity 13 ng/L (<=14)
--- OUTSIDE RECORDS SUMMARY | 2024-10-29 07:43 | XMS RPT_ITS | CCD ---
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 (Bld) 0.2 % 0-1 [facility] Work Phone: Chloride [Moles/Vol] 104 mmol/L 98-107 [facility] Work Phone: Eosinophils/100 WBC (Bld) 0.3 % 0-5 [facility] Work Phone: [phone] Glucose [Mass/Vol] 132 mg/dL 74-106 [facility] Work Phone: Comment on above: Fasting Glucose resu lt greater than or equal to 126 mg/dL suggests DIABETES MELLITUS per A.D.A. criteria. Neutrophils (Bld) [#/Vol] 8.4 10*3/uL 2.0-7.7 [facility] Work Phone: Neutrophils/100 WBC (Bld) 77.7 % 47-70 [facility] Work Phone: Potassium [Moles/Vol] 3.5 mmol/L 3.5-5.1 [facility] Work Phone: Sodium [Moles/Vol] 136 mmol/L 136-145 [facility] Work Phone: WBC (Bld) [#/Vol] 10.8 10*3/uL 4.4-11.0 [facility] Work Phone: Blood erythrocytes count (nu mber/volume)on 09-19-2021 RBC (Bld) [#/Vol] 4.65 10*6/uL 4.2-5.4 [facility] Work Phone: Blood hemoglobin measurement (mass/volume)on 09-19-2021 Hemoglobin (Bld) [Mass/Vol] 14.0 g/dL 12.0-15.0 [facility] Work Phone: [phone] Blood lymphocytes/100 leukoc yteson 09-19-2021 Lymphocytes/100 WBC (Bld) 15.4 % 19-41 [facility] Work Phone: Blood monocytes/100 leukocyt eson 09-19-2021 Monocytes/100 WBC (Bld) 6.1 % 0-10 [facility] Work Phone: Blood platelet mean volumeon 09-19-2021 Platelet mean volume (Bld) [Entitic vol] 8.5 fL 6.2-12.0 [facility] Work Phone: Determination of erythrocyte mean corpuscular volume (MCV)on 09-19-2021 MCV (RBC) [Entitic vol] 90.1 fL 81-99 [facility] Work Phone: Hematocrit Auto (Bld) [Volum e fraction]on 09-19-2021 Hematocrit (Bld) [Volume fraction] 41.9 % 37-47 [facility] Work Phone: Laboratory - Chemistry and C hemistry - challengeon 09-19-2021 CO2 [Moles/Vol] 21.0 mmol/L 21.0-32.0 [facility] Work Phone: Urea nitrogen/Creatinine [Mass ratio] 10.5 mg/mg 10-20 [facility] Work Phone: Laboratory - Drug toxicology on 09-19-2021 Amphetamines Ql (U) Positive [facility] Work Phone: Benzodiazepines Ql (U) Negative [facility] Work Phone: Cannabinoids Screen Ql (U) Positive [facility] Work Phone: Cocaine Ql (U) Negative [facility] Work Phone: Opiates Ql (U) Negative [facility] Work Phone: Laboratory - Hematology and Cell countson 09-19-2021 Erythrocyte distribution width (RBC) [Entitic vol] 41.5 fL 35.1-43.9 [facility] Work Phone: Erythrocyte distribution width (RBC) [Ratio] 12.6 % 11.6-14.6 [facility] Work Phone: Immature granulocytes/100 WBC (Bld) 0.300 % 0.0-0.9 [facility] Work Phone: Comment on above: IG% - Immature Granu locytes (promyelocytes, myelocytes and metamyelocytes) > 1% indicates that a LEFT SHIFT is Present. MCH (RBC) [Entitic mass] 30.1 pg 27.0-32.0 [facility] Work Phone: Nucleated RBC/100 WBC (Bld) [Ratio] 0 % 0-5 [facility] Work Phone: MCHC Auto (RBC) [Mass/Vol]on 09-19-2021 MCHC (RBC) [Mass/Vol] 33.4 g/dL 32-36 [facility] Work Phone: No Panel Informationon 09-19 MDMA (Ecstasy) Screen Positive [facility] Work Phone: Urine Barbiturates Screen Negative [facility] Work Phone: Urine Drug Screen Comment [facility] Work Phone: Comment on above: CONFIRMATORY TESTING FOR ALL POSITIVE URINE DRUG SCREENRESULTS WILL ONLY BE SENT OUT UPON PHYSICIAN ORDER. VISTA Urine Drug Screen methods provide only preliminaryanalytical test results. A more specific alternate chemicalmethod must be used in order to obtain a confirmedanalytical result. Gas chromatography/mass spectrometery(GC/MS) is the preferred confirmatory method. Clinicalconsideration and professional judgement should be appliedto any drug of abuse test result, particularly whenpreliminary positive results are used. URINE TCA TESTING MUST BE ORDERED SEPARATELY. USE TESTMNEMONIC: [facility] Urine Methadone Screen Negative [facility] Work Phone: Estimated Creatinine Clearance Calc 41.66 ml/min [facility] Work Phone: Estimated GFR (MDRD) Amer 57 mL/min >60 [facility] Work Phone: Comment on above: GFR Calc Estimated GFR (MDRD) Non-Af Amer 47 mL/min >60 [facility] Work Phone: Comment on above: Non- GFR Calc Ethyl Alcohol Level < 3.0 mg/dL [facility] Work Phone: Comment on above: The serum:whole bloo d ethanol ratio is approximately 1.14and varies slightly with hematocrit. Medical Alcohol reference interval and critical value innon-tolerant individuals; 50 - 100 Impairment 100 Intoxication 100 - 250 Severe Poisoning 250 - 400 Deep/possible fatal coma Platelets bldon 09-19-2021 Platelets (Bld) [#/Vol] 356 10*3/uL 150-450 [facility] Work Phone: Serum or plasma calcium macie urement (mass/volume)on 09-19-2021 Calcium [Mass/Vol] 9.1 mg/dL 8.5-10.1 [facility] Work Phone: Serum or plasma creatinine m easurement (mass/volume)on 09-19-2021 Creatinine [Mass/Vol] 1.24 mg/dL 0.55-1.02 [facility] Work Phone: Comment on above: The validity of the calculated GFR & GFRAA in patients over 70 years has not been determined. Clinical correlation is essential. Serum or plasma urea nitroge n measurement (mass/volume)on 09-19-2021 Urea nitrogen [Mass/Vol] 13 mg/dL 7-18 [facility] Work Phone: Thin prep Papanicolaou smear with manual screeningon 09-19-2021 Thin prep Papanicolaou smear with manual screening 11 5-15 [facility] Work Phone: Urine phencyclidine (PCP) de tectionon 09-19-2021 Phencyclidine Ql (U) Negative [facility] Work Phone: MA MAMMOGRAM DIAGNOSTIC LEFT on 11-19-2017 MA MAMMOGRAM DIAGNOSTIC LEFT ORIGINALFROM:[address] [address]Ehjxh: [phone] PROCEDURE FOR:CHANDU DAVISON[address], [place] [address]Woxl: [phone]#: [id number]#: [id number]#: [id number]: 2Age: 57 TO:OCTAVIA MANLEYTANO [id number] [place], [place] [address] #[id number] LEFT DIAGNOSTIC MAMMOGRAM WITH MEDIOLATERAL MEDIOLATERAL OBLIQUE CRANIOCAUDAL MAGNIFICATION: 11/19/2017Comparison is made to exam dated: 10/25/2017 mammogram - [facility]. The tissue of the left breast is heterogeneously dense. Additional imaging was obtained. Focal area in question in the left breast in prior mammography is not reproduced and presumably represents an artifact. No significant masses, calcifications, or other findings are seen in the breast. IMPRESSION: BENIGNThere is no mammographic evidence of malignancy. Return to annual mammogram screening schedule is recommended. Please see separate ultrasound report for further details regarding the right mammographic finding. LEANDER VAIL MD cm/:11/20/2017 16:53:27 copy to: JIMBO SMYTH MD, MA [facility], ph: [phone], fax: [phone] Victorian Literature Professor: STEVIE VALLE RT (R)(M), [facility] sent: Normal BI-RADS 1&2 Mammogram BI-RADS: 2 Benign Normal [facility] ([place]) US BREAST RIGHT LIMITEDon US BREAST RIGHT LIMITED ORIGINALFROM:[address] [address]Perpy: [phone] PROCEDURE FOR:CHANDU [address]ESMA [address], [place] [address]Ssdl: [phone]#: [id number]#: [id number]#: [id number]: 1960ge: 57 TO:OCTAVIA MANLEYTANO [address] [place], [place] [address] #[id number] ULTRASOUND OF RIGHT BREAST: 11/19/2017CLINICAL: MAMMOGRAPHIC ASSYMETRY RIGHT BREAST. Comparison is made to exam dated: 10/25/2017 mammogram - [facility]. Color flow and real-time ultrasound of the right breast were performed. There is a benign appearing 2.2 cm area in the right breast at 11 o'clock posterior depth. This correlates with mammography findings. IMPRESSION: BENIGN There is no sonographic evidence of malignancy. The 2.2 cm area in the right breast is consistent with fibroglandular tissue and appears benign. Return to annual mammogram screening schedule is recommended. Please see separate mammogram report regarding the left breast calcifications. LEANDER VAIL MD cm/:11/20/2017 16:57:22 copy to: JIMBO SMYTH MD, MA [facility], ph: [phone], fax: [phone] Victorian Literature Professor: PIPPA WESTBROOK RDMS, [facility] sent: Normal BI-RADS 1&2 Ultrasound BI-RADS: 2 Benign Normal [facility] ([place]) PA MAMMOGRAM SCREENING BILAT ERAL W/TOMOon 10-25-2017 PA MAMMOGRAM SCREENING BILATERAL W/EVERARDO ORIGINALFROM:[address] [address]Imnob: [phone] PROCEDURE FOR:CHANDU [address] [address]Nzqi: [phone]#: [id number]#: [id number]#: [id number]: 2Age: 57 TO:OCTAVIA EID [address] [place], [place] [address] #[id number] DIGITAL SCREENING MAMMOGRAM 3D/2D WITH CAD WITH MEDIOLATERAL OBLIQUE CRANIOCAUDAL: 10/25/2017CLINICAL: BASELINE. No prior exams were available for comparison. The tissue of both breasts is heterogeneously dense. Current study was also evaluated with a Computer Aided Detection (CAD) system. There is a 2.2 cm oval asymmetry in the right axillary tail. This is seen in additional views. There is a 1.6 cm area of grouped punctate calcifications in the left breast at 1 o'clock posterior depth. No other significant masses or calcifications are seen in either breast. IMPRESSION: INCOMPLETE: NEEDS ADDITIONAL IMAGING EVALUATIONThe 2.2 cm oval asymmetry in the right axillary tail appears indeterminate. An ultrasound examination is recommended for the mass. We will contact the patient to arrange for the ultrasound exam. The 1.6 cm area of grouped punctate calcifications in the left breast at 1 o'clock posterior depth appear indeterminate. Additional views are needed for the calcifications including magnification compression spot views in the MLO and CC projections and a lateral magnification view. I have personally reviewed the images of the examination and agree with the findings and interpretation. LEANDER Spencer,da/:11/01/2017 18:10:41 Victorian Literature Professor: JAE Robles)(M), [facility] sent: Abnormal-Needs W/U BI-RADS 0 Mammogram BI-RADS: 0 Indeterminate Normal [facility] ([place]) Vital Signs Date Time Vital Sign Value Performing Clinician Moniquei cecilio 09-19-2021 14:36-0400 Diastolic blood pressure 98 mm[Hg] [facility] Work Phone: 09-19-2021 14:36-0400 Heart rate 81 /min [facility] Work Phone: 09-19-2021 14:36-0400 Respiratory rate 18 /min [facility] Work Phone: 09-19-2021 14:36-0400 Systolic blood pressure 146 mm[Hg] [facility] Work Phone: 09-19-2021 13:24-0400 Body height 162.56 cm [facility] Work Phone: 09-19-2021 13:24-0400 Body mass index (BMI) [Ratio] 21.5 kg/m2 [facility] Work Phone: 09-19-2021 13:24-0400 Body temperature 96 [degF] [facility] Work Phone: 09-19-2021 13:24-0400 Body weight 56.9 kg [facility] Work Phone: 09-19-2021 13:24-0400 SaO2% (BldA) [Mass fraction] 100 % [facility] Work Phone: 09-19-2021 04:13-0400 Diastolic blood pressure 88 mm[Hg] [facility] Work Phone: 09-19-2021 04:13-0400 Heart rate 69 /min [facility] Work Phone: 09-19-2021 04:13-0400 Respiratory rate 18 /min [facility] Work Phone: 09-19-2021 04:13-0400 SaO2% (BldA) [Mass fraction] 99 % [facility] Work Phone: 09-19-2021 04:13-0400 Systolic blood pressure 156 mm[Hg] [facility] Work Phone: 09-19-2021 01:47-0400 Body height 162.56 cm [facility] Work Phone: 09-19-2021 01:47-0400 Body mass index (BMI) [Ratio] 22 kg/m2 [facility] Work Phone: 09-19-2021 01:47-0400 Body temperature 97.9 [degF] [facility] Work Phone: 09-19-2021 01:47-0400 Body weight 58.2 kg [facility] Work Phone: Encounters Encounter Date Encounter Type Care Provider Facility Start: 03-28-2024 End: 03-28-2024 Emergency department patient visit [facility] Facility:[facility] Start: 09-19-2021 End: 09-19-2021 Emergency department patient visit [facility] Start: 09-19-2021 End: 09-19-2021 Emergency department patient visit [facility] Start: 11-19-2017 End: 11-20-2017 Patient encounter OCTAVIA EID Facility:B Start: 10-25-2017 End: 10-26-2017 Patient encounter OCTAVIA EID Facility:B Start: 10-18-2017 Patient encounter OCTAVIA EID Facil ity:A Procedures Date Procedure Procedure Detail Performing Clinician Start: 09-19-2021 CT of head without contrast Plan of Treatment Date Care Activity Detail Author Patient Education ED Seizure, Recurrent ( Adult) [facility] Work Phone: Patient referral [facility] Work Phone: Payers Date Payer Category Payer Self-pay [id number] 2024 Unknown [id number] 2016 Unknown [id number] 2016 Unknown [id number] Medicare [place] AUTH REQUIRED SEE NOTE* * [id number] Unknown [id number] Social History Date Type Detail Facility Start: 09-19-2021 End: 09-19-2021 Tobacco smoking status NHIS Unknown if ever smoked [facility] Work Phone: Start: 1960 Sex Assigned At Female [facility] Work Phone: Mental Status Date Assessment Result Facility 09-19-2021 Cognitive function Voice/Name [facility] Work Phone: 09-19-2021 Cognitive function Voice/Name [facility] Work Phone: Evaluation note Note Date & Type Note Facility Evaluation note No assessment information availa ble [facility] Work Phone: Hospital Discharge instructions Note Date & Type Note Facility Hospital Discharge instructions Additional Instructions Follow-up with Dr. Lin or called the [facility] for follow-up. [facility] Work Phone: Summary Purpose Family History No Family History Records FoundNo Family History Records Found Advance Directives No Advanced Directives Records Found Advance Directive Response Recorded Date/ Time Living Will No September 19, 2021 1:49am Power of Psychologist Chief No September 19 2 1:49am Advance Directive Response Recorded Date/ Time Living Will No September 19, 2021 1:27pm Power of Psychologist Chief No September 19 2 1:27pm Chief Complaint and Reason for Visit Chief Complaint seizure Chief Complaint seizure SEIZURE Additional Source Comments INFORMATION SOURCE (unrecogn ized section and content) DATE CREATED AUTHOR 01/18/2018 [facility] ([place]) DATE CREATED AUTHOR AUTHOR'S ORGANIZ ATION 04/30/2024 [facility] Goals (unrecognized section and content) Goals may be documented in a n alternate sectionGoals may be documented in an alternate section FOR RECORDS PERTAINING TO PATIENTS WHO ARE OR HAVE BEEN ENROLLED IN A CHEMICAL DEPENDENCY/SUBSTANCEABUSE PROGRAM, SOME INFORMATION MAY BE OMITTED. This clinical summary was aggregated from multiple sources. Caution should be exercised in using it in the provision of clinical care. This summary normalizes information from multiple sources, and as a consequence, information in this document may materially change the coding, format and clinical context of patient data. In addition, data may be omitted in some cases. CLINICAL DECISIONS SHOULD BE BASED ON THE PRIMARY CLINICAL RECORDS. [facility]. provides no warranty or guarantee of the accuracy or completeness of information in this document.
[2024-10-29 07:45] LABS: AST(SGOT) 21 U/L (<=31); Alanine Aminotransfer ALT/SGPT 11 U/L (<=34); Albumin, Serum 4.6 g/dL (3.4-4.8); Alkaline Phosphatase 118 U/L (35-104); Anion Gap 15 (5-15); BUN 47 mg/dL (4-19); BUN/Creat Ratio 36.4 RATIO (10-20); Calcium,Total 10.2 mg/dL (7.6-11.0); Carbon Dioxide 25.3 mmol/L (21.0-32.0); Chloride 90 mmol/L (98-108); Estimated Creatinine Clearance 31.03 ml/min (50-250); Globulin 3.6 g/dL (2.2-4.2); Glucose 139 mg/dL (70-99); Lipase 24 U/L (13-75); Potassium 3.9 mmol/L (3.3-5.1)
[2024-10-29 09:17] LABS: CPK Total, Creatine Kinase 38 U/L (24-195)
[2024-10-29 09:22] LABS: Alcohol, Blood (Medical)-Serum < 10.1 mg/dL (<=10.0)
--- NOTE | 2024-10-29 09:22 | US_ITS ---
PROCEDURE: GALLBLADDER 10/29/2024 REASON FOR EXAM: PAIN COMPARISON: Same day CT abdomen pelvis FINDINGS: Liver: Normal in size measuring 16.0 cm. The bile ducts are within normal limits. The major portal vein is patent with normal directional flow at midline. Gallbladder: Multiple stones within the dependent gallbladder. Positive Garcia sign reported by medical technologist chief. No gallbladder wall thickening or pericholecystic fluid. Common bile duct: Normal measuring 0.4 cm. Pancreas: Visualized portions are sonographically unremarkable. Other: Visualized portions of the right kidney are unremarkable. No right upper quadrant ascites. US/Gallbladder IMPRESSION: Cholelithiasis with equivocal findings of acute cholecystitis. Reading Location: [id number]
[2024-10-29 09:38] LABS: Mucous, Urine 0 SEEN /hpf (<or=2+)
[2024-10-29 09:39] LABS: Color, Urine Yellow (Yellow); Glucose, Dipstick Normal (Normal); Ketone-Dipstick Negative (Negative); Leukocyte Esterase-Dipstick Negative /ul (Negative); Nitrite-Dipstick Negative (Negative); Occult Blood-Urine 250 /ul (Negative); Protein-Dipstick 30 mg/dl (Negative); Specific Gravity, Urine 1.010 (1.002-1.030); Urine Bilirubin Dipstick Negative (Negative)
[2024-10-29 09:50] LABS: Red Blood Cells-Urine 5-10 SEEN /hpf (0-5); Squamous Epithelial Cells - UA 0-5 SEEN /hpf (5-10)
[2024-10-29 09:55] LABS: Troponin T High Sens 2 HR 12 ng/L (<=14)
[2024-10-29 10:06] LABS: Barbiturate Urine NEGATIVE (< 200 ng/mL); Benzodiazepine Urine NEGATIVE (< 200 ng/mL); PCP Urine NEGATIVE (< 25 ng/mL); THC Urine PRESUMPTIVE POSITIVE (< 50 ng/mL)
--- NOTE | 2024-10-29 11:27 | CM.ED ---
Social work Reason for referral: possible mental health Referral source: Dr. Martinez SW was consulted for potential mental health struggles due to patient's lack of ability to give medical history and be oriented to time, place, and person. SW entered patient's room, introducing self and role at [facility]. Patient welcomed SW visit and stated multiple times throughout conversation that patient's belly was in so much pain and patient really needed a shot of fluids to make it feel better. Patient was observed being agitated, interrupting SW to say the pain was really bad, and stating not being able to handle the morphine provided due to the morphine giving patient a headache. Patient was oriented to place and person, though patient had difficulty with time (not knowing the day of the week or the month). Patient knew patient's address and birthday, as well as patient's mother's name. Patient stated patient's social security number when asked patient's phone number, though this took a substantial amount of time. Patient was unable to state patient's mother's phone number throughout time SW was in room. Dr. Martinez had tried to call patient's emergency contact, Lilia Duvall (patient's mother) and had to leave a VM. SW tried as well and received nobody; per patient, Lilia is 99 years old. Patient stated having friends bring patient to the ED today. Per patient, it was patient's black edson and a really pale white bitch. Despite attempts, patient could not recall the names of these friends. These friends are reportedly who patient lives with as well. Per patient, patient served 9 years in the [employer] and then served in the [employer] for an unknown amount of time. Per patient, patient has Bipolar and DARIANA, but the medication names are unknown. Per patient, patient sips alcohol every day, though patient could not state what alcohol was consumed, the frequency, or the amount. Patient stated having Percocet and Vicodin prescriptions. Patient stated struggling with sleeping and with eating, stating patient was so skinny. Patient denied being suicidal currently or in the lifetime, as well as denied homicidal. Due to patient's toxicology screen testing positive for multiple substances and being unable to provide coherent answers to questions, it is believed that patient would benefit from medical admission prior to asking further mental health assessment questions. Dr. Martinez in agreement. Viki Burch, INDUSTRIAL AUTOMATION SPECIALIST, TICKET PRINTER
[2024-10-29 12:05] LABS: Troponin T High Sens 4 HR 12 ng/L (<=14)
[2024-10-29] MEDS: HYDROmorphone 0.5 MG/0.5 ML SYRINGE IV (12:50)
[2024-10-29] MEDS: 0.9% Normal Saline (1000mL) 1,000 ML 100 ML IV ×2 (12:50→17:15)
[2024-10-29] MEDS: Piperacil/Tazobactam 3.375 GM in 0.9% Normal Saline (50mL MB+) 50 ML IV ×2 (12:50→21:48)
--- NOTE | 2024-10-29 13:15 | NM_ITS ---
PROCEDURE: HEPATOBILLIARY IMAGING 10/29/2024 REASON FOR EXAM: ABDOMINAL PAIN TECHNIQUE: Intravenous Choletec with planar imaging of the abdomen. RADIOPHARMACEUTICAL: 6 mCi Technetium 99m - Mebrofenin COMPARISON: Abdominal ultrasound and CT earlier same day 10/29/2024. FINDINGS: Prompt homogeneous normal uptake of the radiopharmaceutical by the liver. Normal uptake visualized within the gallbladder within 20-30 minutes. There is normal excretion of radiotracer into the proximal small bowel. NM/Hepatobilliary Imaging IMPRESSION: Normal HIDA scan. No evidence for acute cholecystitis. Reading Location: [id number]
--- NOTE | 2024-10-29 13:17 | EX.PCM.CON.S ---
Assessment & Plan Assessment/Plan (1) Abdominal pain: PLAN: The patient is complaining of abdominal pain and reports tenderness throughout the abdomen. There is no focal point she can point to that shows where her pain is. She also says she vomited but does not remember when. She does not remember when she last ate. She says she feels hungry. Given the fact that her pain is diffuse and not centralized to the right upper quadrant I would like to order a HIDA to rule out acute cholecystitis. The patient does have 2 large gallstones but I do not see anything in the neck of the gallbladder and there is minimal if any thickening and on CT scan there was no stranding around it with no pericholecystic fluid. White count is slightly elevated. She was also mildly dehydrated. She is also severely hypertensive. I would like medicine to admit to deal with the hypertensive issues. If the HIDA is positive I will take her for surgery tomorrow. Steven Garcia MD Pager: [facility] [address] [place] [address], [address] [place] [address] Office: HPI Consult Data Date of Consult: 10/29/24 HPI Narrative HPI Narrative: CHANDU DAVISON, is a 64 F who presents with abdominal pain. The patient is a extremely poor historian she cannot tell me how long the abdominal pain has been going on. She also complains of neck pain that is been going on for 10 years. She did not answer many of my questions except for telling me that she hurts. [facility] Medical History Epilepsy Seizure Home Medications ?Medication ?Instructions ?Recorded ?Last Taken ?Type NK 09/19/21 Unknown History Allergy/AdvReac Type Severity Reaction Status Date / Time No Known Allergies Allergy Verified 10/29/24 06:50 Social History Smoking Status: Current every day smoker tobacco type: cigarettes ROS Review of Systems ROS Unobtainable: due to mental status Physical Exam Const alert and no apparent distress Orientation / Consciousness: confused HEENT normocephalic Eyes PERRL Resp normal respiratory effort Cardio Rate: regular rate Rhythm: regular rhythm GI soft to palpation Palpation: tender Lab / Micro Data 10/29/24 06:55 10/29/24 06:55 Labs: Laboratory Results - last 24 hr 10/29/24 06:55: WBC 13.8 H, RBC 5.42 H, Hgb 16.6 H, Hct 48.0 H, MCV 88.6, MCH 30.6, MCHC 34.6, RDW Std Deviation 40.4, RDW Coeff of Jose 12.4, Plt Count 410, MPV 10.2, Immature Gran % (Auto) 0.500, Neut % (Auto) 74.0 H, Lymph % (Auto) 20.1, Smith % (Auto) 4.8, Eos % (Auto) 0.2, Baso % (Auto) 0.4, Absolute Neuts (auto) 10.2 H, Absolute Lymphs (auto) 2.78, Nucleated RBC % 0, Sodium 130 L, Potassium 3.9, Chloride 90 L, Carbon Dioxide 25.3, Anion Gap 15, BUN 47 H, Creatinine 1.28 H, Estim Creat Clear Calc 31.03 L, Est GFR (MDRD) Non-Af 47 L, BUN/Creatinine Ratio 36.4 H, Glucose 139 H, Calcium 10.2, Total Bilirubin 0.36, AST 21, ALT 11, Alkaline Phosphatase 118 H, Total Creatine Kinase 38, Troponin T High Sens 13, Total Protein 8.2, Albumin 4.6, Globulin 3.6, Albumin/Globulin Ratio 1.3, Lipase 24 10/29/24 07:20: Lactic Acid 1.4 10/29/24 08:00: Ethyl Alcohol < 10.1 10/29/24 09:20: Troponin T Hi Sens 2 Hr 12 10/29/24 09:22: Urine Color Yellow, Urine Clarity Clear, Urine pH 6.0, Ur Specific [place] 1.010, Urine Protein 30 H, Urine Glucose (UA) Normal, Urine Ketones Negative, Urine Occult Blood 250 H, Urine Nitrite Negative, Urine Bilirubin Negative, Urine Urobilinogen Normal, Ur Leukocyte Esterase Negative, Urine RBC 5-10 SEEN, Urine WBC 0 SEEN, Ur Squamous Epith Cells 0-5 SEEN, Urine Bacteria 0 SEEN, Urine Mucus 0 SEEN, Urine Opiates Screen PRESUMPTIVE POSITIVE, U Buprenorphine Qual NEGATIVE, Ur Oxycodone Screen NEGATIVE, Urine Methadone Screen NEGATIVE, Urine Fentanyl Screen PRESUMPTIVE POSITIVE, Ur Barbiturates Screen NEGATIVE, Ur Phencyclidine Scrn NEGATIVE, Ur Amphetamines Screen PRESUMPTIVE POSITIVE, U Benzodiazepines Scrn NEGATIVE, Urine Cocaine Screen NEGATIVE, U Cannabinoids Screen PRESUMPTIVE POSITIVE 10/29/24 11:25: Troponin T Hi Sens 4Hr 12 Rhythm Strip Rhythm Strip: Sinus Rhythm Rate: 86 Ectopy: None Imaging Radiology Impression Abdomen/Pelvis CT 10/29/24 07:09 IMPRESSION: No acute abdominopelvic finding. Chronic findings as described. Reading Location: [facility] Gallbladder Ultrasound 10/29/24 09:22 IMPRESSION: Cholelithiasis with equivocal findings of acute cholecystitis. Reading Location: [facility]
--- NOTE | 2024-10-29 13:29 | PCM.HP.STD ---
HPI - General General Date of Admission: 10/29/24 Date of Service: 10/29/24 Chief Complaint: Abdominal pain HPI Narrative CHANDU DAVISON, is a 64-year-old [facility] and has a history of ?sz d/o and possible bipolar disorder presented [facility] ED 10/29/2024 for abdominal pain. Patient is an extremely poor historian and has loose associations and flight of ideas so history obtained per report but even that was somewhat inconsistent. Supposedly patient's been having nausea, vomiting, diarrhea, abdominal pain for at least a couple of weeks and also is complaining of some chronic neck pain. In the ED temp 98.6, heart rate 91 and blood pressure 212/112, respiratory rate 18 and pulse ox 99% on room air. CBC with a white blood cell count of 13.8 and hemoglobin of 16.6. Sodium of 130, BUN of 47 and creatinine 1.28. Alk phos slightly elevated 118. UA not suggestive of infection, CPK 38, troponin 13 with a repeat of 12, lactic acid 1.4 and lipase of 24. CT abdomen pelvis obtained with no acute process. Gallbladder ultrasound with cholelithiasis with equivocal findings of acute cholecystitis. Surgery consulted due to concerns for acute cholecystitis, given patient's inconsistent history and generalized pain difficult to assess symptomatology, HIDA was ordered and hospitalist contacted for admission with surgical consult. Patient evaluated at bedside, did report the abdominal pain, to me denied diarrhea but did endorse nausea and vomiting, patient could not give any further direct history and began to give contradictory answers or answers completely unrelated to the question. 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 Patient able to tell me medical problems or medicines or even where she got her medications filled. [facility] Medical History Epilepsy Seizure Home Medications ?Medication ?Instructions ?Recorded ?Last Taken ?Type NK 09/19/21 Unknown History Allergy/AdvReac Type Severity Reaction Status Date / Time No Known Allergies Allergy Verified 10/29/24 06:50 Social History Smoking Status: Current every day smoker tobacco type: cigarettes ROS ROS Narrative Unable to obtain secondary to patient mental status Vital Signs Vital Signs Vital Signs: 10/29/24 06:50 10/29/24 08:55 10/29/24 10:00 Temperature 98.6 F Temperature Source Oral Pulse Rate 91 85 83 Respiratory Rate 18 11 L 12 Blood Pressure 212/112 H 199/100 H 197/112 H Blood Pressure Mean 145 133 140 Pulse Ox 99 99 98 Oxygen Delivery Method Room Air Room Air 10/29/24 10:39 10/29/24 10:45 10/29/24 11:00 Temperature Temperature Source Pulse Rate 75 Respiratory Rate 10 L Blood Pressure 170/87 H 188/110 H Blood Pressure Mean 112 134 Pulse Ox 100 100 97 Oxygen Delivery Method 10/29/24 11:30 10/29/24 12:00 Temperature Temperature Source Pulse Rate 82 77 Respiratory Rate 13 Blood Pressure 205/125 H 215/105 H Blood Pressure Mean 146 138 Pulse Ox 98 99 Oxygen Delivery Method Weight Weight: 43.7 kg Body Mass Index (BMI) 16.5 Physical Exam Narrative General: Alert, unable to answer orientation questions, very fidgeting and appears upset at times HEENT: Normocephalic Eyes: Anicteric, normal conjunctiva, extraocular movements grossly intact Neck: Supple Respiratory: Clear to auscultation bilaterally, normal respiratory effort Cardiovascular: Regular rate and rhythm GI: Soft, nondistended, patient does not appear in pain on my palpation however when asked verbally reports that it does hurt, does not seem to have any rebound or guarding Extremities: No edema Musculoskeletal: Moving all extremities Neuro: No overt focal neurological deficits Skin: No rashes appreciated Psych: Patient agitated, flight of ideas somewhat disorganized Results Lab / Micro Data 10/29/24 06:55 10/29/24 06:55 Labs: Laboratory Results - last 24 hr 10/29/24 06:55: WBC 13.8 H, RBC 5.42 H, Hgb 16.6 H, Hct 48.0 H, MCV 88.6, MCH 30.6, MCHC 34.6, RDW Std Deviation 40.4, RDW Coeff of Jose 12.4, Plt Count 410, MPV 10.2, Immature Gran % (Auto) 0.500, Neut % (Auto) 74.0 H, Lymph % (Auto) 20.1, [place] % (Auto) 4.8, Eos % (Auto) 0.2, Baso % (Auto) 0.4, Absolute Neuts (auto) 10.2 H, Absolute Lymphs (auto) 2.78, Nucleated RBC % 0, Sodium 130 L, Potassium 3.9, Chloride 90 L, Carbon Dioxide 25.3, Anion Gap 15, BUN 47 H, Creatinine 1.28 H, Estim Creat Clear Calc 31.03 L, Est GFR (MDRD) Non-Af 47 L, BUN/Creatinine Ratio 36.4 H, Glucose 139 H, Calcium 10.2, Total Bilirubin 0.36, AST 21, ALT 11, Alkaline Phosphatase 118 H, Total Creatine Kinase 38, Troponin T High Sens 13, Total Protein 8.2, Albumin 4.6, Globulin 3.6, Albumin/Globulin Ratio 1.3, Lipase 24 10/29/24 07:20: Lactic Acid 1.4 10/29/24 08:00: Ethyl Alcohol < 10.1 10/29/24 09:20: Troponin T Hi Sens 2 Hr 12 10/29/24 09:22: Urine Color Yellow, Urine Clarity Clear, Urine pH 6.0, Ur Specific [place] 1.010, Urine Protein 30 H, Urine Glucose (UA) Normal, Urine Ketones Negative, Urine Occult Blood 250 H, Urine Nitrite Negative, Urine Bilirubin Negative, Urine Urobilinogen Normal, Ur Leukocyte Esterase Negative, Urine RBC 5-10 SEEN, Urine WBC 0 SEEN, Ur Squamous Epith Cells 0-5 SEEN, Urine Bacteria 0 SEEN, Urine Mucus 0 SEEN, Urine Opiates Screen PRESUMPTIVE POSITIVE, U Buprenorphine Qual NEGATIVE, Ur Oxycodone Screen NEGATIVE, Urine Methadone Screen NEGATIVE, Urine Fentanyl Screen PRESUMPTIVE POSITIVE, Ur Barbiturates Screen NEGATIVE, Ur Phencyclidine Scrn NEGATIVE, Ur Amphetamines Screen PRESUMPTIVE POSITIVE, U Benzodiazepines Scrn NEGATIVE, Urine Cocaine Screen NEGATIVE, U Cannabinoids Screen PRESUMPTIVE POSITIVE 10/29/24 11:25: Troponin T Hi Sens 4Hr 12 Rhythm Strip Rhythm Strip: Sinus Rhythm Rate: 86 Ectopy: None Imaging Radiology Impression Abdomen/Pelvis CT 10/29/24 07:09 IMPRESSION: No acute abdominopelvic finding. Chronic findings as described. Reading Location: [id number] Gallbladder Ultrasound 10/29/24 09:22 IMPRESSION: Cholelithiasis with equivocal findings of acute cholecystitis. Reading Location: [facility] Assessment & Plan Assessment/Plan (1) Abdominal pain: PLAN: Plan # Nausea/vomiting/abdominal pain -CT abdomen with no acute process -Gallbladder ultrasound with positive sonographic Garcia sign and gallstones -Concern for possible cholecystitis -Patient placed on Zosyn -Surgery consulted -HIDA scan ordered -N.p.o. at midnight in the event patient needs surgery tomorrow, pending HIDA scan results -IV fluids -Antiemetics/supportive care - Will also start patient on IV PPI in the event there could be upper GI component as at 1 point there was a query of epigastric pain # Hypertensive urgency -Patient without evidence of endorgan damage -In the ED on my evaluation systolic blood pressure 185 but was frequently in the 200s in the ED -Suspect multifactorial and likely in part due to substance use with intoxication and/or component of withdrawal -Likely also worsened by reports of patient's pain -Will treat with as needed, attempt to obtain records from the [facility] to see if patient should be on any medications -If BP remains elevated can consider scheduling medication # Positive UDS -UDS positive for fentanyl, amphetamines, cannabinoids and opiates, patient did get opiates in the ED for her abdominal pain but this would not account for the positive fentanyl amphetamine -Patient reports story and unable to give further substance use history -Was evaluated in the ED by social work but they also were unable to glean pertinent history -Suspect patient's presentation more consistent with substance intoxication then with underlying psychiatric disorder however if symptoms persist may need to consider that this could be psychiatric in nature and not solely substance use -Advise cessation -Supportive care # Hyponatremia - Sodium of 130 but no recent values available - Does appear somewhat dry, will give IV fluids - If no improvement or if further worsening will need to consider further workup #?History of seizure disorder -Patient does not know what medications she takes, will attempt to get records from the [facility] -Will have Ativan as needed for seizure-like activity -Patient's current presentation not consistent with seizure activity and seems more likely to be due to substance intoxication # CKD stage III a -Appears to be at baseline -Avoid nephrotoxic agents -Daily BMPs #DVT ppx: SCDs Kayli Garcia MD Charges/Coding Visit Charges Inpatient E&M: 22369 Init Hosp L2
--- NOTE | 2024-10-29 15:36 | ED.RN ---
Dr. Martinez notified that pt received complete second 1000ml of NS before going up to floor
[2024-10-29] MEDS: Pantoprazole Sodium 40 MG in 0.9% Normal Saline (100mL MB+) 100 ML 330 MG IV (17:01)
--- NOTE | 2024-10-29 17:57 | EKG12_ITS ---
Test Reason : IRREGULAR HR Blood Pressure : */* mmHG Vent. Rate : 86 BPM Atrial Rate : 86 BPM P-R Int : 120 ms QRS Dur : 88 ms QT Int : 514 ms P-R-T Axes : 15 49 32 degrees QTcB Int : 615 ms Critical Test Result: Long QTc Normal sinus rhythm Prolonged QT Abnormal ECG When compared with ECG of 29-Oct-2024 06:55, MANUAL COMPARISON REQUIRED DATA IS UNCONFIRMED Confirmed by JOSE R VÁSQUEZ, TERESA ([id number]), rewrite editor SISSY BOUCHER ([id number]) on 11/02/2024 9:46:47 AM Referred By: Confirmed By: TERESA ODELL MD
[2024-10-29 18:56] LABS: Troponin T High Sensitivity 11 ng/L (<=14)
[2024-10-29 20:35] LABS: Troponin T High Sens 2 HR 12 ng/L (<=14)
[2024-10-29 23:22] LABS: Troponin T High Sens 4 HR 10 ng/L (<=14)
[2024-10-30] VITALS (7 sets, daily range): BP systolic 139–162; BP diastolic 80–99; PULSE 72–90; RESP 15–16; TEMP 36.7–37.7; O2SAT 97–100
[2024-10-30] MEDS: Piperacil/Tazobactam 3.375 GM in 0.9% Normal Saline (50mL MB+) 50 ML IV ×3 (05:05→23:19)
[2024-10-30] MEDS: 0.9% Normal Saline (1000mL) 1,000 ML 100 ML IV ×2 (05:06→14:09)
[2024-10-30 06:51] LABS: Hematocrit 40.3 % (37-47); Hemoglobin 13.7 g/dL (12.0-15.0); Immature Granulocytes Count 0.020 X10^3/uL (0.0-0.0); Mean Corp Hgb Conc 34.0 g/dL (32-36); Mean Corpuscular Volume 89.8 fL (81-99); Mean Platelet Vol. 10.8 fl (6.2-12.0); NRBC Flagged by Analyzer 0 % (0-5); Platelet Count 304 K/mm3 (150-450); RBC Distribution Width CV 12.6 % (11.6-14.6); RBC Distribution Width SD 41.3 fl (35.1-43.9); Red Blood Count 4.49 M/mm3 (4.2-5.4); White Blood Count 9.3 K/mm3 (4.4-11.0)
--- NOTE | 2024-10-30 07:59 | PN.SURG_ITS ---
Subjective Subjective Today the patient tells me she is still having abdominal pain but she points to her arms where she says the pain is the worst. She is also still complaining of neck pain. She did not have any nausea or vomiting overnight and did not have any bowel movements overnight. Objective Data Objective Data Vital Signs: Vital Signs Temp Pulse Resp BP Pulse Ox O2 Del Method 98.0 F 85 15 151/95 H 97 Room Air 10/30/24 04:59 10/30/24 04:59 10/30/24 04:59 10/30/24 04:59 10/30/24 04:59 10/30/24 04:59 Oxygen Delivery Method Room Air Weight: 100 lb 7 oz Body Mass Index (BMI) 19.5 Intake & Output: Intake and Output for Last 24 Hours 10/28/24 10/29/24 10/30/24 23:59 23:59 23:59 Intake Total 2250 / 2250 1050 / 1050 Balance 2250 / 2250 1050 / 1050 Lab / Micro Data 10/30/24 05:30 10/29/24 06:55 Labs: Laboratory Results - last 24 hr 10/29/24 06:55: Total Creatine Kinase 38 10/29/24 07:20: Lactic Acid 1.4 10/29/24 08:00: Ethyl Alcohol < 10.1 10/29/24 09:20: Troponin T Hi Sens 2 Hr 12 10/29/24 09:22: Urine Color Yellow, Urine Clarity Clear, Urine pH 6.0, Ur Specific [place] 1.010, Urine Protein 30 H, Urine Glucose (UA) Normal, Urine Ketones Negative, Urine Occult Blood 250 H, Urine Nitrite Negative, Urine Bilirubin Negative, Urine Urobilinogen Normal, Ur Leukocyte Esterase Negative, Urine RBC 5-10 SEEN, Urine WBC 0 SEEN, Ur Squamous Epith Cells 0-5 SEEN, Urine Bacteria 0 SEEN, Urine Mucus 0 SEEN, Urine Opiates Screen PRESUMPTIVE POSITIVE, U Buprenorphine Qual NEGATIVE, Ur Oxycodone Screen NEGATIVE, Urine Methadone Screen NEGATIVE, Urine Fentanyl Screen PRESUMPTIVE POSITIVE, Ur Barbiturates Screen NEGATIVE, Ur Phencyclidine Scrn NEGATIVE, Ur Amphetamines Screen PRESUMPTIVE POSITIVE, U Benzodiazepines Scrn NEGATIVE, Urine Cocaine Screen NEGATIVE, U Cannabinoids Screen PRESUMPTIVE POSITIVE 10/29/24 11:25: Troponin T Hi Sens 4Hr 12 10/29/24 18:19: Troponin T High Sens 11 D 10/29/24 19:58: Troponin T Hi Sens 2 Hr 12 10/29/24 22:20: Troponin T Hi Sens 4Hr 10 10/30/24 05:30: WBC 9.3, RBC 4.49, Hgb 13.7, Hct 40.3, MCV 89.8, MCH 30.5, MCHC 34.0, RDW Std Deviation 41.3, RDW Coeff of Jose 12.6, Plt Count 304, MPV 10.8, Immature Gran % (Auto) 0.200, Neut % (Auto) 68.9, Lymph % (Auto) 23.8, [place] % (Auto) 6.7, Eos % (Auto) 0.2, Baso % (Auto) 0.2, Absolute Neuts (auto) 6.4, Absolute Lymphs (auto) 2.21, Nucleated RBC % 0 Radiography Diagnostic Testing: Radiology Impression Abdomen/Pelvis CT 10/29/24 07:09 IMPRESSION: No acute abdominopelvic finding. Chronic findings as described. Reading Location: [facility] Gallbladder Ultrasound 10/29/24 09:22 IMPRESSION: Cholelithiasis with equivocal findings of acute cholecystitis. Reading Location: [facility] Hepatobiliary Scan Nuclear Medicine 10/29/24 13:15 IMPRESSION: Normal HIDA scan. No evidence for acute cholecystitis. Reading Location: [facility] Rhythm Strip Rhythm Strip: Sinus Rhythm Rate: 86 Ectopy: None Physical Exam Const no apparent distress Resp normal respiratory effort GI soft to palpation and non-tender Assessment & Plan Assessment/Plan (1) Polysubstance abuse: (2) Gallstones: PLAN: Plan Today the patient's white count is normal with no left shift. We ordered a HIDA yesterday that showed good prompt filling of the gallbladder indicating no acute cholecystitis. I have ordered the patient a diet this morning to see if she tolerates it as I do not have plans for surgery. When I palpated her abdomen her abdomen seems soft and she did not wince at all during palpation. If she tolerates a diet I think she can go home and follow-up with me to discuss elective cholecystectomy for the gallstones. Steven Garcia MD Pager: [facility] [address] [place] [address] [address] [place] [phone] Office:
[2024-10-30 08:40] LABS: AST(SGOT) 18 U/L (<=31); Alanine Aminotransfer ALT/SGPT 8 U/L (<=34); Albumin, Serum 3.7 g/dL (3.4-4.8); Alkaline Phosphatase 86 U/L (35-104); Anion Gap 13 (5-15); BUN 18 mg/dL (4-19); BUN/Creat Ratio 23.5 RATIO (10-20); Calcium,Total 8.8 mg/dL (7.6-11.0); Carbon Dioxide 22.6 mmol/L (21.0-32.0); Chloride 101 mmol/L (98-108); Estimated Creatinine Clearance 55.15 ml/min (50-250); Globulin 2.6 g/dL (2.2-4.2); Glucose 122 mg/dL (70-99); Potassium 3.3 mmol/L (3.3-5.1)
--- NOTE | 2024-10-30 09:26 | CASEMGMT ---
Addendum entered by Suzanna Fierro 10/30/24 10:42: Social Work SW spoke w/the treatment navigator, she will let Eden know to see pt today. NEIDA Lopez Original Note: Social Work SW met w/pt in room, pt is aware in the hospital, knows it is October 30, though states it is 2004. Pt able to answer some questions appropriately, SW reviewed w/pt how she was functioning prior to this hospital stay. PCP/Specialists: Pt does all of her doctoring at [facility]. Pt not able to tell SW the name of her PCP, other than he is a white franchesca. Insurance: Pt has [facility] benefits and Medicare Prescription Benefit: Pt states gets her medications from the [facility], they cost $8 per prescription. Pt states does not have a separate prescription plan [facility], if she needs something on this hospital stay would want [facility]. SW will check cost to see if pt can afford the medication. Living arrangements/Prior level of function: Pt lives in an apartment w/two roommates. SW verified address on file as the correct, though pt did have difficulty verbalizing the address initially. Pt states is independent at home, uses no DME, cares for herself. LNOK: Mother, two sisters, no children POA/LW: Not on file Transportation: Pt states she drives, has a Jeep, says a friend can drive her home today. DME: Pt has no DME, though thinks her roommate may have a walker. Pt not certain about whether or not she has O2 at home, pt is not on O2 here. HHC: Pt thinks she may have had HHC in the past through the [facility] SNF: No history MH: Pt confirms history of depression, anxiety and PTSD, pt states receives treatment at the [facility] for this, and is satisfied w/her services, no referrals needed at this time. Substance Abuse: Pt confirms history of substance abuse, is interested in speaking w/Eden from [facility]. SW called and left a message. SDOH: Questions asked, pt confirms needing food resources. [facility] referral made and resources given. Plan will be for pt to return home when ready, though pt does continue to complain of abdominal pain. SW did call pt's mother to check on how pt functions normally, message left. Pt did give SW her sister's name and number to add to the computer. SW will also try pt's sister later should pt's mother not return call. SW will continue to follow. NEIDA Lopez
[2024-10-30] MEDS: Pantoprazole Sodium 40 MG in 0.9% Normal Saline (100mL MB+) 100 ML 330 MG IV ×2 (09:27→20:42)
[2024-10-30] MEDS: 0.9% Saline Lock 10 ML Syringe IV (10:44)
--- NOTE | 2024-10-30 13:00 | ADDICTION ---
Met with patient to discuss her current use/ struggles with addiction and provide resources. She did admit that she is using daily and would like resources for treatment centers in and surrounding counties.
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
--- NOTE | 2024-10-30 16:00 | PN_ITS ---
Subjective Subjective Patient seen and examined. She still complained of abdominal pain. She denies any nausea or vomiting. Patient was seen with her nurse by her bedside. She is still confused and restless. Review of systems is otherwise negative. Objective Data Objective Data Vital Signs: Vital Signs Temp Pulse Resp BP Pulse Ox O2 Del Method O2 Flow Rate 99.1 F 90 16 162/87 H 99 Room Air 1 10/30/24 14:09 10/30/24 14:09 10/30/24 14:09 10/30/24 14:09 10/30/24 14:09 10/30/24 14:09 10/30/24 09:17 Oxygen Flow Rate (L/min) 1 Oxygen Delivery Method Room Air Weight: 100 lb 7.011 oz Body Mass Index (BMI) 19.5 Intake & Output: Intake and Output for Last 24 Hours 10/28/24 10/29/24 10/30/24 23:59 23:59 23:59 Intake Total 2250 / 2250 2075.00 / 2075.00 Balance 2250 / 2250 2075.00 / 2075.00 Lab / Micro Data 10/30/24 05:30 10/30/24 05:30 Labs: Laboratory Results - last 24 hr 10/29/24 18:19: Troponin T High Sens 11 D 10/29/24 19:58: Troponin T Hi Sens 2 Hr 12 10/29/24 22:20: Troponin T Hi Sens 4Hr 10 10/30/24 05:30: WBC 9.3, RBC 4.49, Hgb 13.7, Hct 40.3, MCV 89.8, MCH 30.5, MCHC 34.0, RDW Std Deviation 41.3, RDW Coeff of Jose 12.6, Plt Count 304, MPV 10.8, Immature Gran % (Auto) 0.200, Neut % (Auto) 68.9, Lymph % (Auto) 23.8, [place] % (Auto) 6.7, Eos % (Auto) 0.2, Baso % (Auto) 0.2, Absolute Neuts (auto) 6.4, Absolute Lymphs (auto) 2.21, Nucleated RBC % 0, Sodium 137, Potassium 3.3, Chloride 101, Carbon Dioxide 22.6, Anion Gap 13, BUN 18, Creatinine 0.75, Estim Creat Clear Calc 55.15, Est GFR (MDRD) Non-Af 90, BUN/Creatinine Ratio 23.5 H, G lucose 122 H, Calcium 8.8, Total Bilirubin 0.37, AST 18, ALT 8, Alkaline Phosphatase 86, Total Protein 6.3, Albumin 3.7, Globulin 2.6, Albumin/Globulin Ratio 1.4 Radiography Diagnostic Testing: Radiology Impression Hepatobiliary Scan Nuclear Medicine 10/29/24 13:15 IMPRESSION: Normal HIDA scan. No evidence for acute cholecystitis. Reading Location: [id number] Rhythm Strip Rhythm Strip: Sinus Rhythm Rate: 86 Ectopy: None Physical Exam Const alert and oriented x3 Constitutional Narrative: confused, restless HEENT normocephalic, head/scalp atraumatic, moist oral mucous membranes and oropharynx normal Eyes PERRL and EOMs intact bilaterally Neck no lymphadenopathy and supple Lymph Lymphatic: no lymphadenopathy noted and no lymphedema noted Resp normal respiratory effort, normal air movement and clear to auscultation bilaterally Cardio regular rate, regular rhythm, S1 normal heart sound, S2 normal heart sound and no murmurs GI normal to inspection, nondistended, normoactive bowel sounds, soft to palpation, non-tender and non-distended Extremity normal capillary refill, no clubbing, cyanosis or edema and no calf tenderness General Extremity: no tenderness to palpation of joints or extremities Skin General Skin Exam: no breakdown Neuro CN's II-XII intact bilaterally, no focal motor deficits, no sensory deficits noted and deep tendon reflexes 2+ bilaterally Motor Exam: general weakness Psych Psych Narrative: confused, restless Activity / Motor Behavior: restless Assessment & Plan Assessment/Plan (1) Altered mental status: PLAN: Plan #Acute abdominal pain * was concerning for acute cholecystitis. HIDA scan was however negative. * gallbladder USG with equivocal findings of acute cholecystitis. * per general surgery, he doesn't think she has acute cholecystitis * She was started on a diet today but does still complained of abdominal pain. * PO tylenol, PO oxycodone and IV morphine prn. * on IV zosyn * IV zofran prn. Hydrate gently with IVF * #Acute encephalopathy * patient agitated and confused. Seh is also restless. * urine tox positive for fentanyl, amphetamines, cannabinoids and opiates * there is concern for substance intoxication and possible withdrawal. * started on CIWA and CINA protocol * #Hyponatremia: sodium was 130. resolved. Now 137. #History of seizure disorder * does not know what medications she is on. * on ativan prn. * DVT prophylaxis; SCDs. Charges/Coding Visit Charges Inpatient E&M: 96947 Subs Hosp L2
[2024-10-31] MEDS: 0.9% Normal Saline (1000mL) 1,000 ML 100 ML IV (03:15)
[2024-10-31 03:44] VITALS: BP 145/89; PULSE 67; RESP 15; TEMP 36.5; O2SAT 99
[2024-10-31 05:39] LABS: Hematocrit 40.9 % (37-47); Hemoglobin 13.7 g/dL (12.0-15.0); Immature Granulocytes Count 0.030 X10^3/uL (0.0-0.0); Mean Corp Hgb Conc 33.5 g/dL (32-36); Mean Corpuscular Volume 91.9 fL (81-99); Mean Platelet Vol. 10.6 fl (6.2-12.0); NRBC Flagged by Analyzer 0 % (0-5); POSITIVE COUNT YES; Platelet Count 195 K/mm3 (150-450); RBC Distribution Width CV 12.6 % (11.6-14.6); RBC Distribution Width SD 42.7 fl (35.1-43.9); Red Blood Count 4.45 M/mm3 (4.2-5.4); White Blood Count 8.7 K/mm3 (4.4-11.0)
[2024-10-31 05:45] LABS: Differential Indicated SCAN CRITERIA MET
[2024-10-31] MEDS: Piperacil/Tazobactam 3.375 GM in 0.9% Normal Saline (50mL MB+) 50 ML IV (05:48)
[2024-10-31 06:30] LABS: Anion Gap 14 (5-15); BUN 7 mg/dL (4-19); BUN/Creat Ratio 9.0 RATIO (10-20); Calcium,Total 8.8 mg/dL (7.6-11.0); Carbon Dioxide 19.8 mmol/L (21.0-32.0); Chloride 96 mmol/L (98-108); Estimated Creatinine Clearance 51.06 ml/min (50-250); Glucose 121 mg/dL (70-99); Potassium 3.5 mmol/L (3.3-5.1)
[2024-10-31 07:13] LABS: Differential Comment SCANNED
[2024-10-31 08:27] VITALS: BP 165/90; PULSE 65; RESP 16; TEMP 36.8; O2SAT 98
--- NOTE | 2024-10-31 09:22 | CT_ITS ---
PROCEDURE: BRAIN/HEAD W/WO CONTRAST 10/31/2024 REASON FOR EXAM: ACUTE CONFUSION TECHNIQUE: BRAIN/HEAD W/WO CONTRAST Coronal and Sagittal reconstruction series were provided. CONTRAST: Isovue 370 VOLUME: 48 mL One or more dose reduction techniques were used (e.g., Automated exposure control, adjustment of the mA and/or kV according to patient size, use of iterative reconstruction technique). RADIATION DOSE SUMMARY: CTDlvol: 44 mGy DLP: 801 mGycm COMPARISON: None. FINDINGS: The ventricles are normal in size. The beverly-white matter is differentiated. No abnormal intracranial enhancement. No extra-axial blood or fluid collections. The paranasal sinuses and mastoid air cells are clear. The calvarial vault and skull base are intact. CT/Brain/Head W/WO Contrast IMPRESSION: No acute intracranial abnormality. Reading Location: [id number]
[2024-10-31 11:08] VITALS: BP 134/89; PULSE 78; RESP 16; TEMP 36.9; O2SAT 97
[2024-10-31] MEDS: 0.9% Saline Lock 10 ML Syringe IV ×2 (11:27→20:59)
[2024-10-31] MEDS: Pantoprazole Sodium 40 MG in 0.9% Normal Saline (100mL MB+) 100 ML 330 MG IV ×2 (11:27→21:00)
--- NOTE | 2024-10-31 13:29 | CASEMGMT ---
Addendum entered by Suzanna Fierro 10/31/24 13:32: Social work SW did remind pt of appts SW set up at the [facility], pt did remember that these appointments were set up for her. NEIDA Lopez Original Note: Social Work SW met w/pt in room, pt much more awake and able to speak w/SW, pt answering all questions appropriately. Pt had a friend Jeannie visit her earlier. She states Jeannie was one of her roommates, but is moving out, going to live w/her mother. Pt does still live w/Red, the black franchesca. Pt states it will be better just living w/Red. Pt continues to plan to return home at d/c. SW will continue to follow, will call APS when pt is d/c. NEIDA Lopez
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
[2024-10-31 14:45] VITALS: BP 122/84; PULSE 80; RESP 16; TEMP 36.8; O2SAT 99
[2024-10-31 20:57] VITALS: BP 148/90; PULSE 79; RESP 16; TEMP 36.6; O2SAT 98
[2024-10-31] MEDS: MELATONIN 3 MG TABLET 10 MG PO (20:59)
[2024-11-01 03:09] VITALS: BP 140/84; PULSE 70; RESP 16; TEMP 36.6; O2SAT 98
[2024-11-01 05:58] LABS: Hematocrit 37.1 % (37-47); Hemoglobin 12.6 g/dL (12.0-15.0); Immature Granulocytes Count 0.020 X10^3/uL (0.0-0.0); Mean Corp Hgb Conc 34.0 g/dL (32-36); Mean Corpuscular Volume 89.4 fL (81-99); Mean Platelet Vol. 10.0 fl (6.2-12.0); NRBC Flagged by Analyzer 0 % (0-5); Platelet Count 251 K/mm3 (150-450); RBC Distribution Width CV 12.7 % (11.6-14.6); RBC Distribution Width SD 41.6 fl (35.1-43.9); Red Blood Count 4.15 M/mm3 (4.2-5.4); White Blood Count 9.2 K/mm3 (4.4-11.0)
[2024-11-01 06:34] LABS: Anion Gap 10 (5-15); BUN 11 mg/dL (4-19); BUN/Creat Ratio 17.5 RATIO (10-20); Calcium,Total 8.8 mg/dL (7.6-11.0); Carbon Dioxide 25.9 mmol/L (21.0-32.0); Chloride 102 mmol/L (98-108); Estimated Creatinine Clearance 64.63 ml/min (50-250); Glucose 106 mg/dL (70-99); Potassium 3.5 mmol/L (3.3-5.1)
[2024-11-01 10:18] VITALS: BP 151/86; PULSE 82; RESP 16; TEMP 36.9; O2SAT 98
--- NOTE | 2024-11-01 11:11 | CON.PCM.NE_ITS ---
Assessment and Plan: Neuro Assessment/Plan CHANDU DAVISON, is a 64-year-old woman with CKDIII, ?history of seizures and bipolar disorder on 10/29/2024 for abdominal pain, nausea, vomiting, SBP 200s, UTox positive for fentanyl, amphetamines, cannabinoids and opiates Concern for intoxication Confusion and agitation likely multifactorial in the setting of the above She is doing much better today She does have this reported history of seizures, which is unclear how accurate it is and she is a very poor historian, but given concerning clinical history and staring spell observed by the nurse, we will go ahead and start medication. She doesn?t want to try VPA again as it made her very sleepy She denies suicidal ideation Will start Keppra 500 mg BID Follow up in clinic in 1 month. Patient would benefit from EMU admission for further characterization. Patient was instructed not to drive, not to use power tools or operate heavy machinery, should not be on ladders and should not swim.? The patient should use the shower and not the bath. Likewise, they should refrain from any activity which could result in injury to themselves or others if they had a seizure or lost consciousness. These restrictions should continue for at least 6 months or as instructed by a doctor to do otherwise. The patient was informed that these restrictions would be documented in the medical record. I personally attended this patient and spent a total time of 45 minutes evaluating this patient including clinical assessment, review of chart, medical history imaging, and determining appropriate treatment and workup. HPI Consult Data Date of Consult: 11/01/24 HPI Narrative HPI Narrative: CHANDU DAVISON, is a 64-year-old woman with CKDIII, ?history of seizures and bipolar disorder on 10/29/2024 for abdominal pain, nausea, vomiting, SBP 200s. In the ER, Utox positive for fentanyl, amphetamines, cannabinoids and opiates Na 130 There was initial concern for cholecystitis however HIDA scan was negative and there is less concern for that now. She is receiving pain medications including Oxycodone and IV Morphine, was started on diet today, and we are being consulted for altered mental status. Patient is a very poor historian. She reports she has history of seizures for years now, and she was placed on VPA in the past but it made her very sleepy and it wasn?t working. She says they used to be petit mal, but turned into the kind where you ?shake all over the place?, she says she has bitten her cheeks. Nurse at bedside reports she witnessed an episode yesterday where she was unable to speak for about 5 minutes [facility] with no acute findings PHYSICAL EXAM Exam performed with help of the nurse/SAM present with patient on Tele site NEURO: AAOx3, follows commands, no aphasia/dysarthria. EOMI, no gaze preference/nystagmus. Face symmetric, Intact facial sensation. Tongue midline. Head turning intact. Sensation: intact to light touch all over Motor: All extremities antigravity Coordination: FTN intact bilaterally PFSH Medical History Epilepsy Seizure Home Medications ?Medication ?Instructions ?Recorded ?Last Taken ?Type NK 09/19/21 Unknown History Allergy/AdvReac Type Severity Reaction Status Date / Time No Known Allergies Allergy Verified 10/29/24 06:50 Social History Smoking Status: Current every day smoker tobacco type: cigarettes Vital Signs Vital Signs Vital Signs: 10/31/24 14:45 10/31/24 20:00 10/31/24 20:37 Temperature 98.3 F Temperature Source Oral Pulse Rate 80 Pulse Strength Normal (2+) Respiratory Rate 16 Respiratory Effort Normal Non-Labored Respiratory Depth Respiratory Pattern Normal Blood Pressure 122/84 H Blood Pressure Mean 96 Blood Pressure Source Monitor Blood Pressure Position Semi-Fowlers Blood Pressure Location Left Arm Pulse Ox 99 Oxygen Delivery Method Room Air Room Air 10/31/24 20:57 11/01/24 02:25 11/01/24 03:09 Temperature 97.8 F 97.9 F Temperature Source Oral Oral Pulse Rate 79 70 Pulse Strength Respiratory Rate 16 16 Respiratory Effort Normal Non-Labored Respiratory Depth Normal Respiratory Pattern Normal Blood Pressure 148/90 H 140/84 H Blood Pressure Mean 109 102 Blood Pressure Source Monitor Monitor Blood Pressure Position Semi-Fowlers Semi-Fowlers Blood Pressure Location Left Arm Left Arm Pulse Ox 98 98 Oxygen Delivery Method Room Air Room Air Room Air 11/01/24 07:36 11/01/24 10:18 Temperature 98.4 F Temperature Source Oral Pulse Rate 82 Pulse Strength Respiratory Rate 16 Respiratory Effort Respiratory Depth Respiratory Pattern Blood Pressure 151/86 H Blood Pressure Mean 107 Blood Pressure Source Monitor Blood Pressure Position Supine Blood Pressure Location Right Arm Pulse Ox 98 Oxygen Delivery Method Room Air Room Air Weight Weight: 45.558 kg Body Mass Index (BMI) 19.5 EEG Results Procedure Details EEG Procedure Details: CHANDU DAVISON is a 64 year old F with a past medical history of , who presents for evaluation of Electroencephalogram on DATE at TIME Lab / Micro Data 11/01/24 05:22 11/01/24 05:22 Labs: Laboratory Results - last 24 hr 11/01/24 05:22: WBC 9.2, RBC 4.15 L, Hgb 12.6, Hct 37.1, MCV 89.4, MCH 30.4, MCHC 34.0, RDW Std Deviation 41.6, RDW Coeff of Jose 12.7, Plt Count 251, MPV 10.0, Immature Gran % (Auto) 0.200, Neut % (Auto) 53.9, Lymph % (Auto) 36.7, [place] % (Auto) 7.6, Eos % (Auto) 1.3, Baso % (Auto) 0.3, Absolute Neuts (auto) 4.9, Absolute Lymphs (auto) 3.37, Nucleated RBC % 0, Sodium 139, Potassium 3.5, Chloride 102, Carbon Dioxide 25.9, Anion Gap 10, BUN 11, Creatinine 0.64 L, Estim Creat Clear Calc 64.63, Est GFR (MDRD) Non-Af 99, BUN/Creatinine Ratio 17.5, Glucose 106 H, Calcium 8.8 Rhythm Strip Rhythm Strip: Sinus Rhythm Rate: 86 Ectopy: None Active Medications Active Medications Active Medications: Current Medications Generic Name Dose Route Start Last Admin Trade Name Freq PRN Reason Stop Dose Admin Acetaminophen 650 mg 10/29/24 15:58 10/31/24 14:51 Acetaminophen 325 Mg Tablet PO 650 mg Q6H PRN PRN Administration Pain 1-10 Or Fever >100.7 Albuterol Sulfate 2.5 mg 10/29/24 15:58 Albuterol 2.5 Mg/3 Ml Vial.Neb. INHALATION Q2H PRN PRN SOB &/OR WHEEZING Amlodipine Besylate 10 mg 10/30/24 10:00 11/01/24 10:21 Amlodipine 10 Mg Tablet PO 10 mg DAILY NICHOLAS Administration Protocol Hydralazine HCl 5 mg 10/29/24 15:58 Hydralazine 20 Mg/Ml Vial IV Q6H PRN SBP >/=180 Protocol Hydroxyzine HCl 10 mg 10/29/24 15:58 11/01/24 10:21 Hydroxyzine 10 Mg Tablet PO 10 mg 4X/DAY PRN PRN Administration Agitation/anxiety Sodium Chloride 250 mls @ 15 mls/hr 10/29/24 16:08 IV .[id number] PRN Saline Flush Sodium Chloride 250 mls @ 15 mls/hr 10/29/24 16:08 IV .[id number] PRN Additional IVPB Infusion Levetiracetam 500 mg 11/01/24 10:15 Levetiracetam 500 Mg Tablet PO BID NICHOLAS Lorazepam 2 mg 10/29/24 16:07 Lorazepam 2 Mg/Ml Wch Syringe IV X1 PRN Seizure activity Melatonin 10 mg 10/29/24 15:58 10/31/24 20:59 Melatonin 3 Mg Tablet PO 10 mg QHS PRN PRN Administration INSOMNIA Morphine Sulfate 2 mg 10/29/24 15:58 Morphine 2 Mg/Ml Syringe IV Q3H PRN PRN Pain Score 6-10 Ondansetron HCl 4 mg 10/29/24 15:58 10/30/24 20:38 Ondansetron 4 Mg/2 Ml Vial IV 4 mg Q8H PRN PRN Administration NAUSEA/VOMITING Oxycodone HCl 2.5 mg 10/29/24 15:58 10/31/24 20:59 Oxycodone 5 Mg Tablet PO 2.5 mg Q4H PRN PRN Administration Pain Score 4-10 Pantoprazole Sodium 40 mg 11/01/24 10:00 11/01/24 10:22 Pantoprazole Sodium 40 Mg Tablet PO 40 mg BID NICHOLAS Administration Senna/Docusate Sodium 2 tablet 10/29/24 15:58 Senna/Docusate Sodium 1 Tablet PO BID PRN PRN Constipation Sodium Chloride 10 - 40 ml 10/29/24 16:08 10/31/24 20:59 0.9% Saline Lock 10 Ml Syringe IV 10 ml UD PRN Administration SALINE FLUSH
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
--- NOTE | 2024-11-01 13:48 | PCM.DC ---
Discharge Instructions DC O2, CPAP, BIPAP needs Home O2 Discharge instructions: No Dressing / Incision Discharge Activity: Return to Normal Activity Weight Bearing Status: Weight bearing as tolerated Dressing / Incision Call your doctor if you observe: Fever of 101 or Higher, Shortness of breath, Dizziness, Swelling in the ankles, Chest pain and - (seizure) Follow Up Care Test Results: Test results from this visit will be discussed in further detail at your follow-up appointment, if applicable. Discharge Plan Admission Admit Date/Time: 10/29/24 13:29 Primary Reason for Your Visit: abdominal pain, seizures Attending Provider: Rox Vega Primary Care Provider: [place], [place] Consulting Providers: Steven Garcia; Kayli Garcia; Peterson Arellano; Heidi Headley; Germán Valerio; Erika Orr; Heather Escobedo; Luanne Beltran; Akash Arguello; Fercho Menard; LELA LOUISE; Zion Walls; Maris Ordoñez; Freddy Kaur; Opal Syed; Chantal Meredith; Marlon Bran; Sissy Farmer; Eric Marion; Arsenio Oneil; Desmond Guerrero; Oriana Hatfield; Estephania Huffman; Honorio Lopez; Kassy Marie; John Marrero; Fern Amaya; Blayne Phipps Instructions Patient Instructions: EEG Ch, Epilepsy Ch Dc Discharge Orders/Prescriptions Prescriptions: New levetiracetam 750 mg tablet 750 mg PO BID Qty: 60 2RF amlodipine 10 mg Tablet 10 mg PO DAILY Qty: 30 2RF Referrals / Follow Up: Jose Gonzalez MD [Non-Staff -Ordering Privileges] - Within 1 Month (see to establish care for seizure) [place], [place] [Primary Care Provider] - Within 1 Week (You will get a call from a nurse on November 09 at 10:30am. You have an appointment on November 23 at 1pm with primary care. Go to [facility], [address] [place] [address], check in at the dog daycare provider. There will be two appointments on that day.) Disposition Disposition (needs filled in before D/C Order can be placed): Home, Self Care
[2024-11-01 14:38] VITALS: BP 160/80; PULSE 81; RESP 16; TEMP 36.8; O2SAT 100
--- NOTE | 2024-11-02 14:38 | CASEMGMT ---
Social Work SW called [facility], message left as pt was discharged 11/01/24. NEIDA Lopez
--- NOTE | 2024-11-03 10:56 | CASEMGMT ---
MOIÉSS spoke w/[facility], let [facility] know concerns around pt's home situation, drug use, intermittent confusion, not going to the physician in four years. Masoud states they will go out to see the pt w/the . NEIDA Lopez
== END 2024-11-01 16:40 | disposition home or self-care (01) | DRG 392 ==
LOC: ED 13:19 → PCU 14:38
PROVIDERS: Admitting Provider Internal Medicine; Emergency Provider Emergency Medicine; Visit Provider Student in an Organized Health Care Education/Training Program
DX: R10.9 Unspecified abdominal pain (principal); G93.40 Encephalopathy, unspecified; E87.1 Hypo-osmolality and hyponatremia; I16.0 Hypertensive urgency; N18.31 Chronic kidney disease, stage 3a; F19.19 Other psychoactive substance abuse with unspecified psychoactive substance-induced disorder; I12.9 Hypertensive chronic kidney disease with stage 1 through stage 4 chronic kidney disease, or unspecified chronic kidney disease; K80.20 Calculus of gallbladder without cholecystitis without obstruction; R19.7 Diarrhea, unspecified; F17.210 Nicotine dependence, cigarettes, uncomplicated; R45.1 Restlessness and agitation; R41.82 Altered mental status, unspecified; Z86.69 Personal history of other diseases of the nervous system and sense organs
CPT/HCPCS: 36415; 70470; 74177; 76705; 78226; 80048; 80053; 80307; 81001; 82077; 82550; 83605; 83690; 84295; 84484; 85025; 93005; 95819; 97802; 99283; 99406; A9537; Q9967; A4216; J2405